=== PATIENT | male | born 1960 | race Caucasian/White ===

== ENCOUNTER 2017-12-24 08:21 | Day surgery (SDC) | payer OTHER ==
[~2017-12-24] VITALS: Ht 182.9 cm; Wt 91.3 kg
[~2017-12-24 08:21] MED LIST: ALLO100 PO; ALLO300 PO; ATEN100; HYDACE5 PO; INDO50 PO; OXYACE5T PO; RXOXYACE PO; SIMV40; ZESTRIL40 MG
== END 2017-12-24 10:30 | disposition home or self-care (01) ==
LOC: ORSCSDS 08:21
PROVIDERS: Internal Medicine Gastroenterology
PROC: 0DJ08ZZ Inspection of Upper Intestinal Tract, Via Natural or Artificial Opening Endoscopic (ICD-10-PCS; principal; 2017-12-24 09:45)
DX: Z13.810 Encounter for screening for upper gastrointestinal disorder (principal); I85.00 Esophageal varices without bleeding; K74.60 Unspecified cirrhosis of liver; I10 Essential (primary) hypertension; E66.9 Obesity, unspecified; E78.5 Hyperlipidemia, unspecified; Z79.899 Other long term (current) drug therapy
CPT/HCPCS: J2250; J7120

== ENCOUNTER 2018-04-01 06:13 | Emergency (ER) | payer OTHER ==
[~2018-04-01] VITALS: Ht 182.9 cm; Wt 93.0 kg
[~2018-04-01 06:13] MED LIST changes: -SIMV40; +SIMV40 PO; -ZESTRIL40 MG; +ZESTRIL40 MG PO
[2018-04-01 07:42] LABS: BASOPHILS ABSOLUTE AUTO 0.05 K/mm3 (0.00-0.23); BASOPHILS PERCENT AUTO 0 % (0-2); EOSINOPHILS ABSOLUTE AUTO 0.08 K/mm3 (0.00-0.68); EOSINOPHILS PERCENT AUTO 0 % (0-6); Hematocrit 29.5 % (37.0-53.0); Hemoglobin 10.6 g/dL (13.5-17.5); IMMATURE GRAN ABSOLUTE AUTO 0.14 K/mm3 (0.00-0.10); IMMATURE GRAN PERCENT AUTO 1 % (0-1); LYMPHOCYTES ABSOLUTE AUTO 1.47 K/mm3 (0.84-5.20); LYMPHOCYTES PERCENT AUTO 8 % (21-46); MONOCYTES ABSOLUTE AUTO 1.66 K/mm3 (0.16-1.47); MONOCYTES PERCENT AUTO 9 % (4-13); Mean Corpuscular HGB 34.9 pg (26.0-34.0); Mean Corpuscular HGB Conc 35.9 g/dL (31.5-36.5); Mean Corpuscular Volume 97 fL (80-100); Mean Platelet Volume 10.3 fL (9.1-12.4); NEUTROPHILS PERCENT AUTO 81 % (41-73); Platelet Count 157 K/mm3 (150-400); RDW Coefficient Variation 14.9 % (11.7-14.2); RDW Standard Deviation 52.9 fL (35.1-46.3); Red Blood Cell Count 3.04 M/mm3 (4.30-5.90)
[2018-04-01 07:54] LABS: Alanine Aminotransfer (ALT/SGP 41 U/L (12-78); Albumin, Blood 2.2 g/dL (3.4-5.0); Albumin/Globulin Ratio 0.4 (0.8-1.8); Alk Phos 143 U/L (50-136); Anion Gap 8 mmol/L (6-16); Aspartate Aminotrans (AST/SGOT 65 U/L (12-37); Bilirubin, Total 4.2 mg/dL (0.1-1.0); Blood Urea Nitrogen 19 mg/dL (8-24); CO2, Blood 22 mmol/L (21-32); Calcium, Blood 8.8 mg/dL (8.5-10.1); Chloride, Blood 100 mmol/L (98-108); Creatinine, Blood 0.86 mg/dL (0.60-1.20); Glomerular Filtration Rate >60 (60-); Glucose, Blood 128 mg/dL (70-99); Potassium, Blood 4.1 mmol/L (3.5-5.5); Sodium, Blood 130 mmol/L (136-145); Total Protein, Blood 8.2 g/dL (6.4-8.2)
[2018-04-01 08:40] LABS: CPK Creatine Kinase 35 U/L (39-308)
[2018-04-01] MEDS ORDERED: Norco 10-325 T1 EACH PO (12:56)
[2018-04-01] MEDS ORDERED: CEPH500 PO (12:56)
[2018-04-01] MEDS ORDERED: Prednisone20 MG PO (12:56)
[2018-04-01] MEDS ORDERED: Valium5 MG PO (12:56)
== END 2018-04-01 13:34 | disposition home or self-care (01) ==
LOC: ER 06:13
PROVIDERS: Emergency Medicine
DX: M48.02 Spinal stenosis, cervical region (principal); M54.12 Radiculopathy, cervical region; D72.829 Elevated white blood cell count, unspecified; R70.0 Elevated erythrocyte sedimentation rate; I10 Essential (primary) hypertension; Z79.899 Other long term (current) drug therapy
CPT/HCPCS: 36415; 71046; 72156; 80053; 81000; 82550; 85025; 85651; 96361; 96374; 96375; 99283-25; A9577; J1885; J2405; J2930; J3010; J7030

== ENCOUNTER → 2018-06-04 | Outpatient (CLI) | payer OTHER ==
[~2018-06-04] MED LIST changes: +CEPH500 PO; +Fluoxetine HCl20 M1 PO; +Norco 10-325 T1 EACH PO; +OXYC5; +Prednisone20 MG PO; +Valium5 MG PO
[2018-06-04 10:39] LABS: Body Fluid Crystals NEG (NEGATIVE)
[2018-06-04 10:40] LABS: Appearance, Synovial Fluid Bloody (Clear); Color, Synovial Fluid Red (None-P Yel)
[2018-06-04 11:08] LABS: Lymphs, Synovial Fluid 3 % (0-15); Monocytes/Macrophages, Synovia 1 % (0-65); Neutrophils, Synovial Fluid 96 % (0-24)
== END | disposition home or self-care (01) ==
LOC: LAB 09:44 → LAB SHORT 09:44
PROVIDERS: Family Medicine
DX: M25.40 Effusion, unspecified joint (principal)
CPT/HCPCS: 87070; 87075; 87077; 87186; 87205; 89051; 89060

== ENCOUNTER → 2018-08-10 | Outpatient (CLI) | payer OTHER ==
[2018-08-10 11:54] LABS: CHOL/HDL RATIO 3.2; Cholesterol 275 mg/dL (50-200); HDL Cholesterol 86 mg/dL (>39); LDL/HDL RATIO 1.9; Low Density Lipoprotein Chol 164 mg/dL (0-110); Triglycerides 127 mg/dL (30-160); Uric Acid, Blood 5.4 mg/dL (3.5-7.2); Very Low Density Lipoprot Chol 25 mg/dL (6-32)
== END | disposition home or self-care (01) ==
LOC: LAB SHORT 08:45 → LAB UCHC 08:45 → EDSTATUS 10:36
PROVIDERS: Family Medicine
DX: E78.5 Hyperlipidemia, unspecified (principal); M10.9 Gout, unspecified
CPT/HCPCS: 80061; 84550

== ENCOUNTER 2018-12-02 10:38 | Day surgery (SDC) | payer OTHER ==
[~2018-12-02] VITALS: Ht 180.3 cm; Wt 101.4 kg
[2018-12-02] MEDS ORDERED: ATOR40TA (11:31)
== END 2018-12-02 12:35 | disposition home or self-care (01) ==
LOC: ORSCSDS 10:38
PROVIDERS: Internal Medicine Gastroenterology
PROC: 06L38CZ Occlusion of Esophageal Vein with Extraluminal Device, Via Natural or Artificial Opening Endoscopic (ICD-10-PCS; principal; 2018-12-02 12:00)
DX: I85.00 Esophageal varices without bleeding (principal); K76.6 Portal hypertension; K31.89 Other diseases of stomach and duodenum; K70.30 Alcoholic cirrhosis of liver without ascites; I10 Essential (primary) hypertension; E78.5 Hyperlipidemia, unspecified; Z79.899 Other long term (current) drug therapy
CPT/HCPCS: J2250; J2704; J7120

== ENCOUNTER → 2020-03-27 | Outpatient (CLI) | payer OTHER ==
[~2020-03-27] MED LIST changes: +ATOR40TA
== END | disposition home or self-care (01) ==
LOC: LAB UCHC 14:12 → LAB SHORT 14:12
DX: L02.91 Cutaneous abscess, unspecified (principal)
CPT/HCPCS: 87070; 87075; 87077; 87147; 87186; 87205

== ENCOUNTER 2021-04-16 09:48 | Day surgery (SDC) | payer OTHER ==
[~2021-04-16] VITALS: Ht 154.9 cm; Wt 107.4 kg
[~2021-04-16 09:48] MED LIST changes: -ATOR40TA; +ATOR40TA PO; +LOSARTAN-HCTZ1 EACH PO
--- NOTE | 2021-04-16 10:38 | NUR ---
PT AMBULATES TO SDS c STEADY GAIT. REPORTS NPO INSTRUCTED. PREP RESULTS YELLOW s SEDIMENT. Lungs clear T/O to Auscultation. History, Chart, Medications and Allergies reviewed before start of procedure. Patient States Post-Procedure ride home has been arranged.
--- NOTE | 2021-04-16 11:18 | NUR ---
04/16/21 1118 Chester Casey PATIENT DETERMINED TO BE ASA APPROPRIATE FOR PROPOFOL SEDATION PRIOR TO START OF PROCEDURE BY DR. NATHAN. 3-LEAD EKG REVIEWED WITH PHYSICIAN PRIOR TO START OF PROCEDURE. Patient to ENDO 1. History, Chart, Medications and Allergies reviewed before start of procedure. MONITOR INTACT WITH CONTINUOUS PULSE OXIMETRY AND INTERMITTENT BP. O2 VIA N/C INTACT THROUGHOUT SEDATION/PROCEDURE.
--- NOTE | 2021-04-16 12:17 | NUR ---
Discharge instructions reviewed with patient. Patient verbalizes understanding. Copy given to patient to take home. VSS. NO C/O.
--- NOTE | 2021-04-16 12:30 | NUR ---
1124- TRANSFERD PATIENT TO RIDE HOME VIS W/C. PATIENT HAS RIDE ARRANGED WITH HIS MOTHER.
== END 2021-04-16 12:24 | disposition home or self-care (01) ==
LOC: ORSCMMR 09:48 → ORD 10:30 → ORSCMMR 12:24
PROVIDERS: Internal Medicine Gastroenterology
PROC: 0DBP8ZX Excision of Rectum, Via Natural or Artificial Opening Endoscopic, Diagnostic (ICD-10-PCS; principal; 2021-04-16 10:30)
PROC: 0DBM8ZX Excision of Descending Colon, Via Natural or Artificial Opening Endoscopic, Diagnostic (ICD-10-PCS; principal; 2021-04-16 10:30)
DX: R19.5 Other fecal abnormalities (principal); D12.4 Benign neoplasm of descending colon; D12.8 Benign neoplasm of rectum; I10 Essential (primary) hypertension; E78.00 Pure hypercholesterolemia, unspecified; K74.60 Unspecified cirrhosis of liver; Z79.899 Other long term (current) drug therapy
CPT/HCPCS: 88305; J2250; J2704; J7120

== ENCOUNTER 2021-10-30 15:28 | Inpatient (IN) | payer OTHER ==
[~2021-10-30] VITALS: Ht 180.3 cm; Wt 105.2 kg
[2021-10-30 15:59] LABS: BASOPHILS ABSOLUTE AUTO 0.06 K/mm3 (0.00-0.23); BASOPHILS PERCENT AUTO 0 % (0-2); EOSINOPHILS ABSOLUTE AUTO 0.03 K/mm3 (0.00-0.68); EOSINOPHILS PERCENT AUTO 0 % (0-6); Hematocrit 33.3 % (37.0-53.0); Hemoglobin 12.2 g/dL (13.5-17.5); IMMATURE GRAN ABSOLUTE AUTO 0.15 K/mm3 (0.00-0.10); IMMATURE GRAN PERCENT AUTO 1 % (0-1); LYMPHOCYTES ABSOLUTE AUTO 1.29 K/mm3 (0.84-5.20); LYMPHOCYTES PERCENT AUTO 8 % (21-46); MONOCYTES ABSOLUTE AUTO 1.53 K/mm3 (0.16-1.47); MONOCYTES PERCENT AUTO 9 % (4-13); Mean Corpuscular HGB 34.8 pg (26.0-34.0); Mean Corpuscular HGB Conc 36.6 g/dL (31.5-36.5); Mean Corpuscular Volume 95 fL (80-100); NEUTROPHILS ABSOLUTE AUTO 13.23 K/mm3 (1.96-9.15); NEUTROPHILS PERCENT AUTO 81 % (41-73); Platelet Count 107 K/mm3 (150-400); RDW Coefficient Variation 15.7 % (11.7-14.2); RDW Standard Deviation 54.9 fL (35.1-46.3); Red Blood Cell Count 3.51 M/mm3 (4.30-5.90); White Blood Cell Count 16.29 K/mm3 (4.00-11.30)
[2021-10-30 16:11] LABS: Albumin, Blood 2.4 g/dL (3.4-5.0); Albumin/Globulin Ratio 0.5 (0.8-1.8); Bilirubin, Direct 2.5 mg/dL (0.0-0.3); Bilirubin, Indirect 2.6 mg/dL (0.1-0.7); Bilirubin, Total 5.1 mg/dL (0.1-1.0); Bun/Creatinine Ratio 12.9 (12.0-20.0); Calcium, Blood 7.8 mg/dL (8.5-10.1); Creatinine, Blood 2.4 mg/dL (0.60-1.20); Globulin, Blood 5.1 g/dL (2.2-4.0); Total Protein, Blood 7.5 g/dL (6.4-8.2)
--- NOTE | 2021-10-30 21:19 | NUR ---
ADMISSION: PATIENT IS RECIEVED FROM ER VIA STRETCHER. REPORTING PAIN BILAT LEG PAIN 8/10. VSS, PATIENT IS ORIENTED TO ROOM AND CALL JENNINGS. CONCENT IS SIGNED FOR PHOTOS OF WOUND.
[2021-10-31 06:08] LABS: Hematocrit 28.6 % (37.0-53.0); Hemoglobin 10.2 g/dL (13.5-17.5); Mean Corpuscular HGB 34.1 pg (26.0-34.0); Mean Corpuscular HGB Conc 35.7 g/dL (31.5-36.5); Mean Corpuscular Volume 96 fL (80-100); Mean Platelet Volume 11.2 fL (9.1-12.4); Platelet Count 79 K/mm3 (150-400); RDW Coefficient Variation 15.9 % (11.7-14.2); Red Blood Cell Count 2.99 M/mm3 (4.30-5.90); White Blood Cell Count 12.03 K/mm3 (4.00-11.30)
--- NOTE | 2021-10-31 06:18 | NUR ---
SHIFT SUMMARY: PATIENT REPORTED PAIN IN BLE, 7-02/06. DR LOERA WAS NOTIFIED, AN ORDER FOR OXYCODONE 5MG WAS OBTAINED. PATIENT HAD GOOD EFFECT FROM MEDICATION. BP CONTINUES TO BE HYPOTENSIVE. PATIENT IS ASYMPTOMATIC. LR IS INFUSING AT 100 ML/HR. TELI SHOWS NSR, NO EVENTS. IV ABX. ADMIN. PER AUG.
[2021-10-31 06:20] LABS: Bun/Creatinine Ratio 13.1 (12.0-20.0); Creatinine, Blood 1.98 mg/dL (0.60-1.20); Potassium, Blood 3.2 mmol/L (3.5-5.5)
--- NOTE | 2021-10-31 17:35 | NUR ---
SHIFT SUMMARY PATIENT MEDICATED FOR PAIN X1. PATIENT DENIES NAUSEA AND SHORTNESS OF BREATH. PATIENT IS A SBA WITH A FWW FOR TRANSFERS. PATIENT POTASIUM WAS LOW THIS MORNING, REPLACED. PATIENT IN CONTACT ISOLATION, MAINTAINED THROUGHOUT SHIFT. PATIENT NAPPED ON AND OFF ALL SHIFT. PATIENT IS EATING AND DRINKING WELL. PATIENT IS PLEASANT AND COOPERATIVE WITH CARE.
[2021-10-31] MEDS ORDERED: Naltrexone HCl50 MG PO (18:16)
[2021-11-01 04:44] LABS: Hematocrit 30.5 % (37.0-53.0); Hemoglobin 10.8 g/dL (13.5-17.5); Mean Corpuscular HGB 34.3 pg (26.0-34.0); Mean Corpuscular HGB Conc 35.4 g/dL (31.5-36.5); Mean Corpuscular Volume 97 fL (80-100); Mean Platelet Volume 11.6 fL (9.1-12.4); Platelet Count 75 K/mm3 (150-400); RDW Coefficient Variation 16.3 % (11.7-14.2); RDW Standard Deviation 58.4 fL (35.1-46.3); Red Blood Cell Count 3.15 M/mm3 (4.30-5.90); White Blood Cell Count 7.44 K/mm3 (4.00-11.30)
[2021-11-01 05:03] LABS: Bun/Creatinine Ratio 10.8 (12.0-20.0); Calcium, Blood 7.5 mg/dL (8.5-10.1); Creatinine, Blood 2.03 mg/dL (0.60-1.20); Potassium, Blood 3.7 mmol/L (3.5-5.5)
--- NOTE | 2021-11-01 05:13 | NUR ---
SHIFT SUMMARY: NO ACUTE CHANGES THIS SHIFT. VSS, HYPOTENSIVE BUT ASYMPTOMATIC, LR INFUSING @ 150 ML/HR. PATIENT REPORTS PAIN IN BLE, OXYCODONE AND TYLENOL ARE ALTERNATED WITH GOOD EFFECT.
--- NOTE | 2021-11-01 10:07 | NUR ---
spoke with dr whitt regarding low b/p 90/52. in room with pt.
--- NOTE | 2021-11-01 12:36 | NUR ---
SPOKE WITH DR JOHNSON. DISCUSSED PLAN TO MEASURE CALFS, ATTEND TO BED/LEG MOVEMENT EXERCISES, AND STOP IV FLUIDS FOR NOW.
--- NOTE | 2021-11-01 12:38 | NUR ---
CALF MEASUREMENT- RIGHT CALF 13.25M INCHES LEFT CALF 14.25 INCHES
--- NOTE | 2021-11-01 16:53 | NUR ---
SHIFT SUMMARY- PT A&O X3. PT SLEPT THROUGH PARTIAL SHIFT. PT PLEASANT AND COMPLAINT WITH TREATMENT. PT AMBULATED TO RESTROOM TO VOID WITH RINKMAN NEEDED. PT WITH FAMILY IN ROOM PERIODICALLY THROUGHOUT SHIFT. CALL BEDFAST MOST OF SHIFT. PT WITH SIDE RAILS UP AND CALL LIGHT WITHIN REACH.
--- NOTE | 2021-11-01 17:47 | NUR ---
THIS SHELLFISH CHECKER HAS REVIEWED ALL ASSESSMENTS AND NOTES BY BABATUNDE THOMPSON AND AGREES WITH THEM.
--- NOTE | 2021-11-01 18:07 | NUR ---
PT BLISTER ON LEFT POSTERIOR CALF MEASURE 4 INCH BY 1.5 INCH @N 1800
[2021-11-02 04:35] LABS: Hematocrit 30.3 % (37.0-53.0); Hemoglobin 10.8 g/dL (13.5-17.5); Mean Corpuscular HGB 34.6 pg (26.0-34.0); Mean Corpuscular HGB Conc 35.6 g/dL (31.5-36.5); Mean Corpuscular Volume 97 fL (80-100); Mean Platelet Volume 11.2 fL (9.1-12.4); Platelet Count 67 K/mm3 (150-400); RDW Coefficient Variation 16.1 % (11.7-14.2); RDW Standard Deviation 57.6 fL (35.1-46.3); Red Blood Cell Count 3.12 M/mm3 (4.30-5.90); White Blood Cell Count 6.34 K/mm3 (4.00-11.30)
[2021-11-02 05:04] LABS: Bun/Creatinine Ratio 8.4 (12.0-20.0); Calcium, Blood 7.8 mg/dL (8.5-10.1); Creatinine, Blood 1.67 mg/dL (0.60-1.20); Potassium, Blood 3.5 mmol/L (3.5-5.5)
--- NOTE | 2021-11-02 07:10 | NUR ---
SHIFT SUMMARY: PATIENT CONTINUES TO REPORT BILAT LEG PAIN INTERMITTENTLY, OXYCODONE AND TYLENOL ARE ALTERNATED AND EFFECTIVE FOR PAIN CONTROL. A BLISTER ON THE LEFT ANTERIOR LOWER LEG HAS OPENED UP AND DRAINING SEROUS FLUID. A TELFA PAD AND KERLIX IS APPLIED. LEFT WOUND HAS LOST THE SCAB AND HAS A GRANULATED WOUND BED, DRAINING SEROSANQUINES FLUID. WOUNDS WERE WASHED AND NEW FOAM DRSG IS APPLIED. BP CONTINUES TO BE LOW, 95/58 THIS AM, PRN MIDODRINE WAS GIVEN. LOW GRADE TEMP ALSO PERSISTS. TYLENOL WAS GIVEN WITH GOOD EFFECT. PATIENT REFUSED OFFER OF SHOWER X2. BED LINENS WERE CHANGED.
--- NOTE | 2021-11-02 16:13 | NUR ---
SHIFT SUMMARY- PT RESTING/ASLEEP FOR MOST OF SHIFT. PT APPETITE WAS GOOD. PT FAMILY IN ROOM THROUGHOUT SHIFT. PT RESTING COMFORTABLY WITH SIDE RAILS UP AND CALL LIGHT IN REACH.
--- NOTE | 2021-11-02 17:13 | NUR ---
THIS TAPE CALENDER HAS REVIEWED ALL ASSESSMENTS AND NOTES BY BABATUNDE THOMPSON AND AGREES WITH THEM.
[2021-11-03 05:32] LABS: Hematocrit 30.6 % (37.0-53.0); Hemoglobin 10.8 g/dL (13.5-17.5); Mean Corpuscular HGB Conc 35.3 g/dL (31.5-36.5); Mean Corpuscular Volume 96 fL (80-100); Mean Platelet Volume 10.7 fL (9.1-12.4); Platelet Count 71 K/mm3 (150-400); RDW Coefficient Variation 15.9 % (11.7-14.2); RDW Standard Deviation 56.4 fL (35.1-46.3); Red Blood Cell Count 3.18 M/mm3 (4.30-5.90); White Blood Cell Count 4.63 K/mm3 (4.00-11.30)
[2021-11-03 05:59] LABS: Bun/Creatinine Ratio 7.4 (12.0-20.0); Calcium, Blood 8.3 mg/dL (8.5-10.1); Creatinine, Blood 1.36 mg/dL (0.60-1.20); Potassium, Blood 3.6 mmol/L (3.5-5.5)
--- NOTE | 2021-11-03 06:10 | NUR ---
SHIFT SUMMARY: SBP HAS STAYED ABOVE 100 AND NO TEMPS OBSERVED THIS SHIFT. PATIENT HAS INTERNMITTENT PAIN IN LLE, OXYCODONE WAS GIVEN X1 WITH GOOD EFFECT.
[2021-11-03] MEDS ORDERED: ACETAMINOPHEN500 M2 PO (14:10)
[2021-11-03] MEDS ORDERED: BACTRIM DS TAB1 EAC6 PO (14:12)
[2021-11-03] MEDS ORDERED: MIRT15 PO (14:13)
[2021-11-03] MEDS ORDERED: Percocet 5-3251 EACH PO (14:15)
[2021-11-03] MEDS ORDERED: MIRALAX17 G3 PO (14:16)
[2021-11-03] MEDS ORDERED: VISBIOME 112.51 EACH PO (14:18)
== END 2021-11-03 16:00 | disposition home or self-care (01) | DRG 872 ==
LOC: ER 15:28 → MEDS 19:58
PROVIDERS: Physician Assistant; Student in an Organized Health Care Education/Training Program; ADMIT Internal Medicine
PROC: HZ2ZZZZ Detoxification Services for Substance Abuse Treatment (ICD-10-PCS; principal; 2021-10-30)
PROC: 3E03329 Introduction of Other Anti-infective into Peripheral Vein, Percutaneous Approach (ICD-10-PCS; 2021-10-30)
DX: A41.9 Sepsis, unspecified organism (principal); I85.10 Secondary esophageal varices without bleeding; L03.115 Cellulitis of right lower limb; L03.116 Cellulitis of left lower limb; E87.2 Acidosis; N17.9 Acute kidney failure, unspecified; R65.20 Severe sepsis without septic shock; I95.9 Hypotension, unspecified; R63.4 Abnormal weight loss; K70.30 Alcoholic cirrhosis of liver without ascites; I10 Essential (primary) hypertension; M10.9 Gout, unspecified; F10.10 Alcohol abuse, uncomplicated; D69.59 Other secondary thrombocytopenia; E86.0 Dehydration; A46 Erysipelas; E87.6 Hypokalemia; Z68.31 Body mass index [BMI] 31.0-31.9, adult; E78.00 Pure hypercholesterolemia, unspecified; Z86.14 Personal history of Methicillin resistant Staphylococcus aureus infection; Z90.89 Acquired absence of other organs; Z79.899 Other long term (current) drug therapy
CPT/HCPCS: 36415; 76705; 80048; 80053; 80202; 82248; 83605; 85025; 85027; 86850; 86900; 86901; 87040; 87086; 93005; 93010; 96361; 96365; 96368; 99285-25; A9270; J0295; J1644; J3370; J3480; J7030; J7050; J7060; J7120

== ENCOUNTER 2021-11-09 01:59 | Day surgery (SDC) | payer OTHER ==
[~2021-11-09 01:59] MED LIST changes: +ACETAMINOPHEN500 M2 PO; +BACTRIM DS TAB1 EAC6 PO; +MIRALAX17 G3 PO; +MIRT15 PO; +Naltrexone HCl50 MG PO; +Percocet 5-3251 EACH PO; +VISBIOME 112.51 EACH PO
== END 2021-11-09 23:03 | disposition home or self-care (01) ==
LOC: WOUND 01:59
DX: S91.312D Laceration without foreign body, left foot, subsequent encounter (principal); S81.802D Unspecified open wound, left lower leg, subsequent encounter; S91.104D Unspecified open wound of right lesser toe(s) without damage to nail, subsequent encounter; W19.XXXD Unspecified fall, subsequent encounter; L03.116 Cellulitis of left lower limb; I73.9 Peripheral vascular disease, unspecified; I87.2 Venous insufficiency (chronic) (peripheral); I10 Essential (primary) hypertension; E78.5 Hyperlipidemia, unspecified
CPT/HCPCS: G0463

== ENCOUNTER 2021-11-23 05:27 | Day surgery (SDC) | payer OTHER | END 2021-11-23 23:00 | disposition home or self-care (01) | LOC: WOUND 05:27 | DX: S91.104D Unspecified open wound of right lesser toe(s) without damage to nail, subsequent encounter (principal); S91.302D Unspecified open wound, left foot, subsequent encounter; X58.XXXD Exposure to other specified factors, subsequent encounter; I73.9 Peripheral vascular disease, unspecified; I87.2 Venous insufficiency (chronic) (peripheral) | CPT/HCPCS: G0463 ==

== ENCOUNTER 2021-12-19 11:52 | Emergency (ER) | payer OTHER ==
[~2021-12-19] VITALS: Ht 180.3 cm; Wt 108.9 kg
[~2021-12-19 11:52] MED LIST changes: +LOSARTAN-HCTZ1 EAC6 PO
== END 2021-12-19 13:01 | disposition home or self-care (01) ==
LOC: ER 11:52
DX: R04.0 Epistaxis (principal); I10 Essential (primary) hypertension; E78.5 Hyperlipidemia, unspecified; M10.9 Gout, unspecified; Z79.899 Other long term (current) drug therapy
CPT/HCPCS: 99283

== ENCOUNTER 2021-12-21 08:17 | Emergency (ER) | payer OTHER ==
[~2021-12-21] VITALS: Ht 180.3 cm; Wt 108.9 kg
== END 2021-12-21 09:00 | disposition home or self-care (01) ==
LOC: ER 08:17
DX: Z46.89 Encounter for fitting and adjustment of other specified devices (principal); I10 Essential (primary) hypertension; E78.5 Hyperlipidemia, unspecified; Z79.899 Other long term (current) drug therapy
CPT/HCPCS: 99282

== ENCOUNTER → 2022-01-16 | Day surgery (SDC) | payer OTHER | LOC: WOUND 02:21 | DX: L03.116 Cellulitis of left lower limb (principal); L03.115 Cellulitis of right lower limb; I87.2 Venous insufficiency (chronic) (peripheral); I73.9 Peripheral vascular disease, unspecified | CPT/HCPCS: A9270; G0463 ==

== ENCOUNTER 2022-01-23 00:57 | Day surgery (SDC) | payer OTHER | END 2022-01-23 23:35 | disposition home or self-care (01) | LOC: WOUND 00:57 | DX: L03.116 Cellulitis of left lower limb (principal); L03.115 Cellulitis of right lower limb; I87.2 Venous insufficiency (chronic) (peripheral); I73.9 Peripheral vascular disease, unspecified | CPT/HCPCS: A9270; G0463 ==

== ENCOUNTER 2022-02-06 08:00 | Day surgery (SDC) | payer OTHER | END 2022-02-06 23:59 | disposition home or self-care (01) | LOC: WOUND 08:00 | DX: L03.116 Cellulitis of left lower limb (principal); L03.115 Cellulitis of right lower limb; I87.2 Venous insufficiency (chronic) (peripheral); I73.9 Peripheral vascular disease, unspecified | CPT/HCPCS: G0463 ==

== ENCOUNTER 2022-02-20 01:47 | Day surgery (SDC) | payer OTHER | END 2022-02-20 23:28 | disposition home or self-care (01) | LOC: WOUND 01:47 | DX: L03.116 Cellulitis of left lower limb (principal); L03.115 Cellulitis of right lower limb; I87.2 Venous insufficiency (chronic) (peripheral); I73.9 Peripheral vascular disease, unspecified | CPT/HCPCS: G0463 ==

== ENCOUNTER 2022-02-27 03:21 | Day surgery (SDC) | payer OTHER | END 2022-02-27 22:57 | disposition home or self-care (01) | LOC: WOUND 03:21 | DX: L03.116 Cellulitis of left lower limb (principal); L03.115 Cellulitis of right lower limb; I87.2 Venous insufficiency (chronic) (peripheral) | CPT/HCPCS: G0463 ==

== ENCOUNTER 2022-03-13 07:38 | Day surgery (SDC) | payer OTHER | END 2022-03-13 23:38 | disposition home or self-care (01) | LOC: WOUND 07:38 | DX: L97.822 Non-pressure chronic ulcer of other part of left lower leg with fat layer exposed (principal); L03.116 Cellulitis of left lower limb; L03.115 Cellulitis of right lower limb; I87.2 Venous insufficiency (chronic) (peripheral); I73.9 Peripheral vascular disease, unspecified | CPT/HCPCS: G0463 ==

== ENCOUNTER 2022-07-08 12:36 | Inpatient (IN) | payer OTHER ==
[~2022-07-08] VITALS: Ht 180.3 cm; Wt 110.2 kg
[2022-07-08 14:00] LABS: BASOPHILS ABSOLUTE AUTO 0.07 K/mm3 (0.00-0.23); BASOPHILS PERCENT AUTO 2 % (0-2); EOSINOPHILS ABSOLUTE AUTO 0.06 K/mm3 (0.00-0.68); EOSINOPHILS PERCENT AUTO 1 % (0-6); Hematocrit 36.1 % (37.0-53.0); Hemoglobin 12.7 g/dL (13.5-17.5); IMMATURE GRAN ABSOLUTE AUTO 0.02 K/mm3 (0.00-0.10); IMMATURE GRAN PERCENT AUTO 0 % (0-1); LYMPHOCYTES ABSOLUTE AUTO 0.82 K/mm3 (0.84-5.20); LYMPHOCYTES PERCENT AUTO 18 % (21-46); MONOCYTES PERCENT AUTO 20 % (4-13); Mean Corpuscular HGB 35.8 pg (26.0-34.0); Mean Corpuscular HGB Conc 35.2 g/dL (31.5-36.5); Mean Corpuscular Volume 102 fL (80-100); Mean Platelet Volume 10.6 fL (9.1-12.4); NEUTROPHILS ABSOLUTE AUTO 2.65 K/mm3 (1.96-9.15); NEUTROPHILS PERCENT AUTO 59 % (41-73); Platelet Count 74 K/mm3 (150-400); RDW Coefficient Variation 19.6 % (11.7-14.2); RDW Standard Deviation 73.7 fL (35.1-46.3); Red Blood Cell Count 3.55 M/mm3 (4.30-5.90); White Blood Cell Count 4.52 K/mm3 (4.00-11.30)
[2022-07-08 14:20] LABS: Albumin, Blood 2.8 g/dL (3.4-5.0); Albumin/Globulin Ratio 0.5 (0.8-1.8); Bilirubin, Total 11.5 mg/dL (0.1-1.0); Bun/Creatinine Ratio 12.1 (12.0-20.0); Calcium, Blood 9.4 mg/dL (8.5-10.1); Creatinine, Blood 2.31 mg/dL (0.60-1.20); Globulin, Blood 5.6 g/dL (2.2-4.0); Potassium, Blood 3.7 mmol/L (3.5-5.5); Total Protein, Blood 8.4 g/dL (6.4-8.2)
[2022-07-08 17:04] LABS: Source, Urine Clean Catch
[2022-07-08 17:12] LABS: Appearance, Urine Hazy (Clear); Blood, Urine 4+ (Neg); Color, Urine Amber (P-Yellow); Glucose Qualitative, Urine Neg (Neg); Ketones, Urine 1+ (Neg); Leukocyte Esterase, Urine 1+ (Neg); Nitrite, Urine Neg (Neg); Protein, Urine 3+ (Neg); Specific Gravity, Urine 1.015 (1.003-1.022); Urobilinogen, Urine 2+ (Normal)
[2022-07-08 17:47] LABS: Bilirubin, Urine 2+ (Neg)
[2022-07-08 17:50] LABS: Bacteria Mod /hpf; Mucus Light (0-Heavy); Renal Epithelial Rare /hpf (0-Rare); Squamous Epithelial Cells Few /hpf (Few)
--- NOTE | 2022-07-08 18:42 | NUR ---
ER ADMIT Patient admitted to medical floor, AOx4, preferred name is "Ulises". Patient gait is weak, staff SBA for safety. Denies pain/discomfort. Bowel tones active/audible. Lungs/Heart WNL. Patient has large black scab on left big toe, scan bleeding from scab. Took photo and placed in hard chart. IVP in right AC. Telemetery ordered, NSR. Plan is to hydrate with fluids. Will continue to monitor, give report to oncoming nurse.
[2022-07-09 05:18] LABS: BASOPHILS ABSOLUTE AUTO 0.06 K/mm3 (0.00-0.23); BASOPHILS PERCENT AUTO 2 % (0-2); EOSINOPHILS ABSOLUTE AUTO 0.07 K/mm3 (0.00-0.68); EOSINOPHILS PERCENT AUTO 2 % (0-6); Hematocrit 31.4 % (37.0-53.0); Hemoglobin 11.3 g/dL (13.5-17.5); IMMATURE GRAN ABSOLUTE AUTO 0.03 K/mm3 (0.00-0.10); IMMATURE GRAN PERCENT AUTO 1 % (0-1); LYMPHOCYTES ABSOLUTE AUTO 0.88 K/mm3 (0.84-5.20); LYMPHOCYTES PERCENT AUTO 22 % (21-46); MONOCYTES ABSOLUTE AUTO 0.88 K/mm3 (0.16-1.47); MONOCYTES PERCENT AUTO 22 % (4-13); Mean Corpuscular HGB 36.1 pg (26.0-34.0); Mean Corpuscular Volume 100 fL (80-100); NEUTROPHILS ABSOLUTE AUTO 2.08 K/mm3 (1.96-9.15); NEUTROPHILS PERCENT AUTO 52 % (41-73); Platelet Count 54 K/mm3 (150-400); RDW Coefficient Variation 19.3 % (11.7-14.2); RDW Standard Deviation 70.4 fL (35.1-46.3); Red Blood Cell Count 3.13 M/mm3 (4.30-5.90)
--- NOTE | 2022-07-09 06:14 | NUR ---
Shift Summary AOx4, pleasant and cooperative. Pt states he quit alcohol 1 week ago but he is still experiencing some symptoms, notably hand tremors and minor visual hallucinations. Pt resting comfortably t/o the night but didn't get much sleep. His R AC IV kept erroring distal occlusion, IV ended up being removed and a new IV started in his L FA. Pt rcving 1 L NS @ 75 x1 bag. SBA to BR, pt uses call light appropriatly. VSS, no acute events.
--- NOTE | 2022-07-09 06:40 | NUR ---
Shift Summary, AOx3, awakes with some confusion and impulsivity. 1 assist when up, uses urinal at the edge of the bed. Mild R sided deficits when ambulating, eyes are constricted even in the dark. Arm strength seems bilaterally equal and intact. On telemetry running AFIB around 100. Sometimes has loud, wet sounding breath sounds while asleep, declines offer to raise HoB. VSS, no acute events, pleasant and cooperative.
[2022-07-09 08:46] LABS: Albumin, Blood 2.4 g/dL (3.4-5.0); Albumin/Globulin Ratio 0.5 (0.8-1.8); Bilirubin, Total 9.9 mg/dL (0.1-1.0); Bun/Creatinine Ratio 16.9 (12.0-20.0); Calcium, Blood 9.3 mg/dL (8.5-10.1); Creatinine, Blood 2.31 mg/dL (0.60-1.20); Potassium, Blood 3.4 mmol/L (3.5-5.5); Total Protein, Blood 7.4 g/dL (6.4-8.2)
--- NOTE | 2022-07-09 17:02 | NUR ---
Patient noted to have change in condition, compared to when he was admitted yesterday evening. This morning patient appeared to have visual hallucinations, but still AOx4 and steady gait. By 12pm today patient observed to have visual/auditory hallucinations, anxiety & agitation. CIWA scored 11. Patient and his girlfriend reported patient stopped drinking 11 days ago, patient denies having any alcohol recently. notified, new orders for CIWA, alcohol withdrawal PRN meds. IV Ativan & PO Librium given, patient appeared more calm, when more family arrived patient restless, insisted on getting OOB. This evening CIWA scored at 14, more IV Ativan given. Patient unsteady on feet, RN helped patient back to bed. Patient tried using urinal and voided on the floor, patient then got OOB and was standing in urine, staff/family helped patient back to bed. He kept trying to get OOB. Patients [facility], they told RN that patient stopped drinking on Jun 30, but his "last drink" was 3 days ago. Patient was weaning his alcohol intake. They reported this year he had gone to detox centers in [place] to detox from alcohol. So patient started to fell unwell yesterday and came to ER. Patient was moved to SCU unit, so he could be monitored closer d/t high fall risk.
--- NOTE | 2022-07-09 19:11 | NUR ---
SHIFT SUMMARY PT AXO TO SELF AND DATE ONLY. TRANSFERRED FROM 358 TO 348 THIS SHIFT. PT WITHDRAWING, CIWA 14-15, MEDICATED PER EMAR. PT IN BETO WITH 4 SIDE RAILS UP FOR PATIENT SAFETY PATIENT IS CURRENTLY NOT REDIRECTABLE, NOT SAFE TO BE UP OOB, AGGITATED AND IMPULSIVE. FAMILY AWARE. REPORT GIVEN TO TOWNSHIP SUPERVISOR NURSE WHO ASSUMES CARE AT THIS TIME.
[2022-07-10 06:20] LABS: Bun/Creatinine Ratio 12.7 (12.0-20.0); Calcium, Blood 9.7 mg/dL (8.5-10.1); Creatinine, Blood 2.05 mg/dL (0.60-1.20); Potassium, Blood 4.5 mmol/L (3.5-5.5)
--- NOTE | 2022-07-10 07:13 | NUR ---
PT TRANSFERRED TO ICU FOR ETOH WITHDRAWAL AT 0500 THIS AM, ON ARRIVAL HE WAS NOTED TO BE THRASHING IN BED, PINCHED THIS RN'S FINGERS WITH ATTEMPTS TO PROVIDE CARE, PUSHED AGAINST HANDS AND BEDRAILS, PULLED AT ANY LINES/CORDS THAT FINGERS CLOSED AROUND. PT WAS NOT REDIRECTABLE, DID NOT FOLLOW COMMANDS, DID NOT OPEN EYES AND DID NOT VERBALIZE MORE THAN MUMBLING. HE WAS NOTED INCONT OF URINE ATTEMPT WAS MADE TO TURN HIM TO REMOVE EXTRA LINENS AND OBTAIN WEIGHT, ATTENDS WAS CHANGED HOWEVER PT PUSHED HARD AGAINST STAFF DURING TURNS AND THREW FEET OFF EDGE OF BED AND KICKED. CALL WAS PLACED TO DR POLLOCK AND ORDER FOR WRIST RESTRAINTS AND PRECEDEX OBTAINED. PRECEDEX WAS STARTED AT 0.4 MCG/KG/HR, INFUSED FOR 20 MINUTES AND PT WAS NOTED TO BECOME HYPOTENSIVE, PRECEDEX WAS DECREASED TO 0.2 MCG/KG/HR FOR 15 MINUTES AND PRESSURES CONTINUED TO DECLINE, PRECEDEX WAS STOPPED INFUSING AND NS 250 ML BOLUS STARTED INFUSING, DR POLLOCK CONTACTED REGARDING HYPOTENSION POTENTIAL NEED FOR ROMAZICON DISCUSSED, ORDERS OBTAINED FOR NS BOLUS OF 1000 ML. THIS WAS STARTED INFUSING AND PT'S MOST RECENT PRESSURE WAS 93/71. REPORT GIVEN TO DAY SHIFT RN.
--- NOTE | 2022-07-10 18:32 | NUR ---
END OF SHIFT SUMMARY NEURO: DOES NOT FOLLOW COMMANDS, NOT ORIENTED, MEDICATED WITH ATIVAN IV FOR CIWA 20-35, PT RESTS WELL AFTER ATIVAN. NO PRECEDEX DUE TO HYPOTENSION. BILAT SOFT WRIST RESTRAINTS IN PLACE. CARDIAC: HR 60-70'S, BP 80'S-110, MAP > 65. 1 LITER NS BOLUS GIVEN. RESP: 2L NC WHILE ASLEEP DUE TO INTERMITTENT SLEEP APNEA ASSOCIATED WITH DESATURATIONS TO THE 80'S. MAINTAINS SPO2 > 92 WITH O2. GI: NPO DUE TO SOMNOLENCE. RESISTENT TO ORAL CARE ALTHOUGH ATTEMPTED. NO REPORTED NAUSEA, NO VOMITING. : INCONTINENT. VOIDS IN BRIEF, CHANGED SEVERAL TIMES. SKIN: SCABS TO BILAT FEET PRESENT ON ADMISSION. NO CHANGES TO SKIN THIS SHIFT. IV: PIV X1, FLUSHES WELL, INFUSING NS AT 75ML/HR. FAMILY IN TO VISIT THIS AM (SON, 2 SISTERS, DAUGHTER, MOTHER, GIRLFRIEND AND GRANDDAUGHTERS). ALL PROVIDED WITH UPDATES AND ALL QUESTIONS ANSWERED. ENCOURAGED FAMILY TO NOT STIMULATE PT, THEY VERBALIZED UNDERSTANDING AND KEPT VISITS SHORT. PASSCODE CREATED BY FAMILY DUE TO CALLS FROM EX THAT IS NOT TO HAVE UPDATES/INFORMATION PER PTS STATED WISHES.
--- NOTE | 2022-07-10 20:16 | NUR ---
ASSUMED CARE OF PT AT 1900, PT HAS BEEN RESTING QUIETLY UNTIL JUST AFTER 1999 AT WHICH TIME HE BEGAN PUTTING LEGS OVER BEDRAIL AND ATTEMPTING TO SIT UP, WHEN ASKED WHAT HE WAS DOING, HE MUMBLED "I WANT A SHOWER" PT WAS EDUCATED REGARDING CURRENT LEVEL OF COORDINATION AND LIKELY INABILITY TO STAND FOR SHOWER HE IS UNABLE TO SIT WITHOUT FALLING OVER TO THE SIDE OR BACKWARD. ON EVALUATION, ATTENDS IS NOTED TO BE WET. RICHARD CARE AND ATTENDS CHANGE PROVIDED. PT DOES FOLLOW COMMANDS THROUGH ATTENDS CHANGE AND REPOSITIONING HOWEVER REQUIRES INSTRUCTIONS BE REPEATED MULTIPLE TIMES. INCREASED TREMOR IS NOTED THROUGHOUT EVALUATION AND INCREASING AGITATION. ATIVAN 4 MG IV ADMINISTERED. SEE CIWA ASSESSMENT.
--- NOTE | 2022-07-11 00:35 | NUR ---
ASSUMED CARE ASSUMED CARE AT 2300. PT IN BED, WITH EYES CLOSED. NS AT 75ML/HR. VSS. SR/SB 50-60'S. SBP 90'S. MAP GREATER THAN 65. VSS. 2L NC.
[2022-07-11 03:32] LABS: Hematocrit 31.7 % (37.0-53.0); Hemoglobin 11.3 g/dL (13.5-17.5); Mean Corpuscular HGB 36.1 pg (26.0-34.0); Mean Corpuscular HGB Conc 35.6 g/dL (31.5-36.5); Mean Corpuscular Volume 101 fL (80-100); Platelet Count 58 K/mm3 (150-400); RDW Coefficient Variation 19.3 % (11.7-14.2); RDW Standard Deviation 72.3 fL (35.1-46.3); Red Blood Cell Count 3.13 M/mm3 (4.30-5.90); White Blood Cell Count 3.62 K/mm3 (4.00-11.30)
[2022-07-11 03:48] LABS: Bun/Creatinine Ratio 12.2 (12.0-20.0); Calcium, Blood 8.6 mg/dL (8.5-10.1); Creatinine, Blood 2.13 mg/dL (0.60-1.20); Magnesium, Blood 1.7 mg/dL (1.6-2.4); Potassium, Blood 3.9 mmol/L (3.5-5.5)
--- NOTE | 2022-07-11 05:55 | NUR ---
SHIFT SUMMARY NO ACUTE EVENTS T/O NIGHT. MEDICATED W/ ATIVAN X 2. CIWA 11-12. VSS. BP SOFT AND POSITIONAL. MAP GREATER THAN 65. ON 2L NC. PT SPO2 DOWN TO 87% WHEN SLEEPING ON RA. PT INCONT. BREIF IN PLACE. NS AT 75ML/HR. WILL REPORT TO ONCOMING SHIFT.
--- NOTE | 2022-07-11 07:27 | NUR ---
ASSUMED CARE OF PT AT 0715 BEDSIDE REPORT RECEIVED FROM RN, PT HAS BEEN INTERMITTENTLY RESTLESS THROUGHOUT THE NIGHT AND IS GETTING ATIVAN IV PRN TO TREAT ELEVATED CIWA. BP'S REMAIN SOFT WHILE ASLEEP WITH SBP IN THE 80'S AT TIMES, INCREASES WHEN AWAKE. ON 2LNC AND MAINTAINS SPO2 > 92%. NPO DUE TO SOMNOLENCE, INCONTINENT, HAS BRIEF ON. SKIN UNCHANGED WITH JAUNDICE COLORING (PRESENT ON ADMISSION AND IMPROVED PER FAMILY) AND SCABBING TO BILAT FEET/TOES. PIV X 1 WITH NS INFUSING AT 75ML/HR. GIRLFRIEND TO BEDSIDE AND UPDATED ON PT CONDITION AND POC. ENCOURAGED FAMILY TO MINIMIZE STIMULATION TO PT. RN TO CONTINUE TO FOLLOW.
--- NOTE | 2022-07-11 11:26 | NUR ---
TO BEDSIDE DR. LOERA TO BEDSIDE TO ASSESS PT. DISCUSSED ABNORMAL LABS, CURRENT CONDITION AND POC. 1 LITER NS BOLUS ORDER R/T CONTINUED SOFT BP. RN TO CONTINUE TO MONITOR
--- NOTE | 2022-07-11 14:05 | NUR ---
CIWA 21-26 MEDICATED WITH 4MG ATIVAN WITH RELIEF OF SYMPOTMS NEEDED FOR CIWA > 8. PT CONTINENT AND GETS RESTLESS WHEN HE NEEDS TO URINATE. ABLE TO VOID INTO URINAL WITH ASSISTANCE. RESTING COMFORTABLY AFTER ATIVAN, STILL DISORIENTED BUT ABLE TO SPEAK IN COMPLETE SENTENCES, FOLLOWING COMMANDS MORE CONSISTENTLY. NO FAMILY AT BEDSIDE, UPDATED SON VIA PHONE THIS AM. RN TO CONTINUE TO MONITOR.
--- NOTE | 2022-07-11 19:16 | NUR ---
END OF SHIFT SUMMARY NEURO: ORIENTED TO NAME AND YEAR. STATES HE WANTS TO LEAVE. RESTLESS AND SWINGING LEGS OVER THE BED. CARDIAC: SR 60-80, SBP 80-90 PRIOR TO 1 LITER NS BOLUS, 100-115 AFTER BOLUS. RESP: 2L NC TO MAINTAIN O2 SAT > 92%. OCCASIONAL LOOSE COUGH, NON-PRODUCTIVE. GI: NPO DUE TO SOMNOLENCE AND CONFUSION. BS HYPOACTIVE, NO BM THIS SHIFT. : VOIDS USING URINAL, MARIVEL YELLOW URINE. SKIN: BUTTOCK EXCORIATED, PICTURES TAKEN. BATH GIVEN. IV: PIV X1 LEFT FOREARM. NS INFUSING AT 75ML/HR. PT CONTINUES TO BE RESTLESS AND CIWA ELEVATED DESPITE ATIVAN IV PRN. ORDER RECEIVED FOR PHENOBARBITOL IV X1 AND EVERY 15-30 MIN UNTIL SYMPTOMS RESOLVE. PT CALM AFTER LOADING DOSE.
--- NOTE | 2022-07-11 19:40 | NUR ---
ASSUMED CARE PT IS A&O TO SELF. MORE ARTICULATE THAN PREVIOUSLY PER REPORT AND ABLE TO ANSWER QUESTIONS APPROPRIATELY; DOES NOT KNOW WHERE HE IS AT. PT RESTLESS, BUT NOT PULLING AT LINES WHEN ASSUMING CARE. OCCASIONAL NON-PRODUCTIVE COUGH. BARRIER CREAM APPLIED TO GLUTEAL FOLDS. SPO2 >92% ON 2L NC; MAP >65.
--- NOTE | 2022-07-11 23:20 | NUR ---
UPDATE PT ON RA.
--- NOTE | 2022-07-12 00:13 | NUR ---
UPDATE PT BACK ON 2L NC WHILE SLEEPING.
[2022-07-12 05:07] LABS: BASOPHILS PERCENT AUTO 3 % (0-2); EOSINOPHILS ABSOLUTE AUTO 0.07 K/mm3 (0.00-0.68); EOSINOPHILS PERCENT AUTO 2 % (0-6); Hematocrit 31.8 % (37.0-53.0); Hemoglobin 11.1 g/dL (13.5-17.5); IMMATURE GRAN ABSOLUTE AUTO 0.01 K/mm3 (0.00-0.10); IMMATURE GRAN PERCENT AUTO 0 % (0-1); LYMPHOCYTES ABSOLUTE AUTO 0.81 K/mm3 (0.84-5.20); LYMPHOCYTES PERCENT AUTO 24 % (21-46); MONOCYTES ABSOLUTE AUTO 0.87 K/mm3 (0.16-1.47); MONOCYTES PERCENT AUTO 26 % (4-13); Mean Corpuscular HGB 36.2 pg (26.0-34.0); Mean Corpuscular HGB Conc 34.9 g/dL (31.5-36.5); Mean Corpuscular Volume 104 fL (80-100); Mean Platelet Volume 10.7 fL (9.1-12.4); NEUTROPHILS ABSOLUTE AUTO 1.53 K/mm3 (1.96-9.15); NEUTROPHILS PERCENT AUTO 45 % (41-73); Platelet Count 53 K/mm3 (150-400); RDW Coefficient Variation 19.2 % (11.7-14.2); RDW Standard Deviation 73.4 fL (35.1-46.3); Red Blood Cell Count 3.07 M/mm3 (4.30-5.90); White Blood Cell Count 3.39 K/mm3 (4.00-11.30)
[2022-07-12 05:32] LABS: Albumin, Blood 2.2 g/dL (3.4-5.0); Anion Gap 6 mmol/L (6-16); Blood Urea Nitrogen 25 mg/dL (8-24); Bun/Creatinine Ratio 13.2 (12.0-20.0); CO2, Blood 20 mmol/L (21-32); Calcium, Blood 8.7 mg/dL (8.5-10.1); Chloride, Blood 115 mmol/L (98-108); Creatinine, Blood 1.89 mg/dL (0.60-1.20); Glomerular Filtration Rate 40 (60-); Glucose, Blood 85 mg/dL (70-99); Phosphorus, Blood 3.4 mg/dL (2.5-4.9); Potassium, Blood 3.7 mmol/L (3.5-5.5); Sodium, Blood 141 mmol/L (136-145)
--- NOTE | 2022-07-12 06:24 | NUR ---
SHIFT SUMMARY PT IS A&O X1; DOES NOT KNOW WHERE HE IS AT WHEN ASKED T/O NIGHT. ATIVAN TO MANAGE CIWA T/O NIGHT. NO ACUTE CHANGES SINCE ASSUMED CARE NOTE.
--- NOTE | 2022-07-12 07:24 | NUR ---
Lamar of Care: Care assumed at 0700hr. Patient sleeping, easily roused to verbal stimuli. Oriented to self and year/month, confused to location. Speech mumbled, but able to express needs. Able to follow commands. Quickly falls back asleep when not stimulated by staff. Bilateral soft wrist restraints in place as he pulls at essential lines, tubes, cords when awake. Denied pain, discomfort, SOB, or dyspnea. VSS, spO2 100% on 2l/nc. Peripheral IV x1 to lt wrist patent and intact. Will continue to monitor for ETOH withdrawal and medicate as indicated.
--- NOTE | 2022-07-12 18:32 | NUR ---
Shift Summary: No significant changes throughout shift. VS remain stable, no s/s of dyspnea/SOB. Occasional moist cough (upper airway secretions). Cough effective to clear secretions. Patient sleeping throughout shift, occasionally wakes and is restless in bed. Remains oriented to self and date but confused to place and reason for admission. Answers random locations when asked "where are you right now?". Calm with staff but unable to re-direct. Continually attempts to climb out of bed and pull at lines/tubes/cords. X1 prn ativan given this shift with good effect. Incontinent of urine x3-4 this shift, denies need to void when asked. Will continue to monitor until report to NOC shift RN.
[2022-07-13 05:06] LABS: BASOPHILS ABSOLUTE AUTO 0.08 K/mm3 (0.00-0.23); BASOPHILS PERCENT AUTO 3 % (0-2); EOSINOPHILS ABSOLUTE AUTO 0.06 K/mm3 (0.00-0.68); EOSINOPHILS PERCENT AUTO 2 % (0-6); Hematocrit 32.4 % (37.0-53.0); Hemoglobin 11.2 g/dL (13.5-17.5); IMMATURE GRAN PERCENT AUTO 0 % (0-1); LYMPHOCYTES PERCENT AUTO 22 % (21-46); MONOCYTES ABSOLUTE AUTO 0.63 K/mm3 (0.16-1.47); MONOCYTES PERCENT AUTO 19 % (4-13); Mean Corpuscular HGB Conc 34.6 g/dL (31.5-36.5); Mean Corpuscular Volume 104 fL (80-100); Mean Platelet Volume 11.4 fL (9.1-12.4); NEUTROPHILS ABSOLUTE AUTO 1.78 K/mm3 (1.96-9.15); NEUTROPHILS PERCENT AUTO 55 % (41-73); Platelet Count 60 K/mm3 (150-400); RDW Coefficient Variation 18.6 % (11.7-14.2); RDW Standard Deviation 71.6 fL (35.1-46.3); Red Blood Cell Count 3.11 M/mm3 (4.30-5.90); White Blood Cell Count 3.25 K/mm3 (4.00-11.30)
--- NOTE | 2022-07-13 06:06 | NUR ---
END OF SHIFT SUMMARY LINES: LEFT FOREARM PIV AND JASIEL PG DRIPS: NS @ 75 ML/HR AND CLINIMIX @ 125 ML/HR NEURO: PT INITIALLY ORIENTED TO SELF AND PLACE AND FOLLOWING COMMANDS. AROUSABLE TO VERBAL STIMULI. THROUGHOUT SHIFT BECAME INCREASING ANXIOUS AND AGITATED WITH MULTIPLE ATTEMPTS GETTING OUT OF BED AND PULLING AT LINES/WIRES. MANAGING WITHDRAWAL WITH PRN ATIVAN AND PHENOBARBITAL. ALL FOUR EXTREMITIES ABLE TO OVERCOME RESISTANCE. TREMORS NOTED AGAINST GRAVITY. GROSS SENSATION INTACT. WITHDRAWS TO NOXIOUS STIMULI AND CAPABLE OF DETERMINING APPENDAGE STIMULATED. ICTERIC SCLERA. PUPILS 2MM AND BRISK CARDIAC: RHYTHM AT START OF SHIFT NSR WITH HR 50s-60s. SBP AVERAGING IN 140s. CAP REFILL < 3 SECONDS. NO EDEMA NOTED. PT RHYTHM CHANGE TO AFIB AT 0530. EKG TAKEN. PT REMAINED NORMOTENSIVE. RESPIRATORY: 2L NC SATTING >95%. INTERMITTENT CONGESTIVE COUGH. RHONCHI APPRECIATED IN BUL. BLL CLEAR AND DIMINISHED. GI/: ABDOMEN MODERATE DISTENTION AND FIRM. NORMOACTIVE BOWEL SOUNDS. INCONTINENT OF BOWEL AND BLADDER. CONDOM CATHETER IN PLACE. PUTTING OUT ADEQUATE AMOUNTS OF MARIVEL URINE. INTEGUMENTARY: JAUNDICED. DIAPHORETIC. SLIGHT REDNESS AND EXCORIATION TO GLUTEAL FOLDS
[2022-07-13 06:28] LABS: Albumin, Blood 2.2 g/dL (3.4-5.0); Anion Gap 6 mmol/L (6-16); Blood Urea Nitrogen 20 mg/dL (8-24); CO2, Blood 21 mmol/L (21-32); Chloride, Blood 112 mmol/L (98-108); Creatinine, Blood 1.43 mg/dL (0.60-1.20); Glomerular Filtration Rate 55 (60-); Glucose, Blood 129 mg/dL (70-99); Phosphorus, Blood 2.3 mg/dL (2.5-4.9); Potassium, Blood 3.5 mmol/L (3.5-5.5); Sodium, Blood 139 mmol/L (136-145)
--- NOTE | 2022-07-13 17:13 | NUR ---
SHIFT SUMMARY NO ACUTE CHANGES. PT REMAINS LETHARGIC AND SOMNOLENT THROUGHOUT THE SHIFT. PT REMAINS CONFUSED AND OCCASIONALLY MOANS OUT. RESTLESS AT TIMES. VITAL SIGNS STABLE. PT ON ROOM AIR. CLINIMIX INFUSING AT 125 ML/HR AND NS TKO. CONDOM CATH IN PLACE WITH DARK ORANGE URINE OUTPUT NOTED. SBW RESTRAINTS REMAIN IN PLACE. PT FAMILY UPDATED AT BEDSIDE. WILL CONTINUE TO MONITOR AND REPORT OFF TO ONCOMING RN.
[2022-07-14 04:04] LABS: BASOPHILS PERCENT AUTO 3 % (0-2); EOSINOPHILS ABSOLUTE AUTO 0.07 K/mm3 (0.00-0.68); EOSINOPHILS PERCENT AUTO 2 % (0-6); Hematocrit 35.2 % (37.0-53.0); Hemoglobin 12.4 g/dL (13.5-17.5); IMMATURE GRAN ABSOLUTE AUTO 0.01 K/mm3 (0.00-0.10); IMMATURE GRAN PERCENT AUTO 0 % (0-1); LYMPHOCYTES ABSOLUTE AUTO 0.82 K/mm3 (0.84-5.20); LYMPHOCYTES PERCENT AUTO 23 % (21-46); MONOCYTES ABSOLUTE AUTO 0.73 K/mm3 (0.16-1.47); MONOCYTES PERCENT AUTO 20 % (4-13); Mean Corpuscular HGB 35.9 pg (26.0-34.0); Mean Corpuscular HGB Conc 35.2 g/dL (31.5-36.5); Mean Corpuscular Volume 102 fL (80-100); NEUTROPHILS ABSOLUTE AUTO 1.85 K/mm3 (1.96-9.15); NEUTROPHILS PERCENT AUTO 52 % (41-73); Platelet Count 67 K/mm3 (150-400); RDW Coefficient Variation 17.7 % (11.7-14.2); RDW Standard Deviation 66.8 fL (35.1-46.3); Red Blood Cell Count 3.45 M/mm3 (4.30-5.90); White Blood Cell Count 3.58 K/mm3 (4.00-11.30)
[2022-07-14 04:32] LABS: Bun/Creatinine Ratio 14.8 (12.0-20.0); Creatinine, Blood 1.15 mg/dL (0.60-1.20); Potassium, Blood 3.6 mmol/L (3.5-5.5); Thyroid Stimulating Hormone 2.72 uIU/mL (0.360-4.800)
--- NOTE | 2022-07-14 06:24 | NUR ---
END OF SHIFT SUMMARY LINES: LEFT FOREARM PIV AND JASIEL PG DRIPS: NS @ 10 ML/HR AND CLINIMIX @ 125 ML/HR NEURO: PT INTERMITTENTLY ORIENTED TO SELF AND PLACE. ALERT TO PHYSICAL STIMULI. MANAGING WITHDRAWAL WITH PRN ATIVAN AND PHENOBARBITAL. ALL FOUR EXTREMITIES ABLE TO OVERCOME RESISTANCE. TREMORS NOTED AGAINST GRAVITY. GROSS SENSATION INTACT. WITHDRAWS TO NOXIOUS STIMULI AND INTERMITTENTLY FOLLOWS COMMANDS. ICTERIC SCLERA. PUPILS 2MM AND BRISK CARDIAC: NSR. HR 60s-70s. NORMOTENSIVE. SBP IN 110s. CAP REFILL < 3 SECONDS. NO EDEMA NOTED. RESPIRATORY: ONE INSTANCE OVERNIGHT OF SAT DROPPING INTO LOW 70s. PLACED ON 2L NC SATTING >95% WHEN SLEEPING. INTERMITTENT CONGESTIVE COUGH. CLEAR BREATH SOUNDS APPRECIATED IN BUL AND BLL. GI/: ABDOMEN MODERATE DISTENTION AND FIRM. NORMOACTIVE BOWEL SOUNDS. INCONTINENT OF BOWEL AND BLADDER. NO BOWEL MOVEMENT OVERNIGHT. CONDOM CATHETER IN PLACE. PUTTING OUT ADEQUATE AMOUNTS OF MARIVEL URINE. INTEGUMENTARY: JAUNDICED. DIAPHORETIC. SLIGHT REDNESS AND EXCORIATION TO GLUTEAL FOLDS.
--- NOTE | 2022-07-14 18:09 | NUR ---
SUMMARY PT ORIENTED TO SELF AND ABLE TO STATE YEAR THIS AFTERNOON. PT GETS RESTLESS WHILE AWAKE BUT COOPERATIVE WITH CARE THEN WILL EVENTUALLY GO BACK TO SLEEP. HOLDING SEDATION TO SEE IF PT WILL WAKE UP MORE SO HE CAN START EATING AND GETTING OOB. NO OTHER CHANGES.
--- NOTE | 2022-07-14 19:36 | NUR ---
ASSUMPTION OF CARE THIS RN ASSUMED CARE OF PATIENT AT 1930. PATIENT RESTING IN BED WITH EYES CLOSED. WILL OPEN EYES TO VERBAL STIMULI BUT QUICKLY FALLS BACK TO SLEEP. PATIENT ON 2L NC WITH O2 SAT >90%. MOIST COUGH WHILE RN IN ROOM, OTHERWISE ABLE TO CLEAR SECRETIONS ON OWN. VSS. JAUNDICED COLOR TO SKIN. CONDOM CATH IN PLACE DRAINING DARK YELLOW URINE. NO FAMILY AT BEDSIDE AT THIS TIME. CALL LIGHT IN REACH, BED IN LOW POSITION.
--- NOTE | 2022-07-15 06:35 | NUR ---
SHIFT SUMMARY PATIENT WAKES TO VERBAL STIMULI, ATTEMPTS TO OPEN EYES BUT WILL QUICKLY FALL BACK ASLEEP DURING CONVERSATION. PATIENT VERY LETHARGIC T/O NIGHT. NEGATIVE CIWAS. VSS, PATIENT ON 2L NC WITH O2 SAT >90%. Q2 TURNS DURING THE NIGHT, PATIENT STIFF AND IS UNABLE TO ASSIST STAFF WITH TURNS/REPOSITIONING. CONDOM CATH IN PLACE DRAINING DARK YELLOW URINE TO GRAVITY. PATIENT REMAINS JANDICE IN COLOR. BED IN LOW POSITION, CALL LIGHT IN REACH. NO OTHER CHANGES, WILL REPORT TO DAY SHIFT RN.
--- NOTE | 2022-07-15 08:00 | NUR ---
INITIAL ASSESSMENT PATIENT SOMNOLENT. PATIENT SLEEPING. PATIENT RESPONDS TO NOXIOUS STIMULI. PATIENT OCCASIONALLY RESPONDS TO VERBAL STIMULI; WHEN PATIENT DOES RESPOND HE MUMBLES. PATIENT CONTINUES TO KEEP EYES CLOSED. CIWA SCORE OF 6. PATIENT LAST GIVEN MEDICATION FOR ETOH WITHDRAWAL YESTERDAY AROUND 0500. SCLERA JAUNDICED. PATIENT WEAK BUT ABLE TO MOVE ALL EXTREMITIES TO NOXIOUS STIMULI. PATIENT'S BODY IS STIFF. PATIENT AFEBRILE. NO SIGNS OF PAIN OR DISCOMFORT NOTED. PATIENT DECREASED FROM 2 L NC TO RA AND REMAINS SATTING 90% AND GREATER. PATIENT IN SR, HR 60S TO 70S. SBP 1-TEENS TO 120S. PATIENT NPO FOR SOMNOLENCE. ABD MODERATELY DISTENDED, SOFT, NONTENDER, WITH NORMOACTIVE BOWEL SOUNDS NOTED. ULCER TO R SIDE OF TONGUE; GF STATES PATIENT HAS SHARP TOOTH THAT CUT IT. PLAQUE TO ROOF OF MOUTH AND TONGUE; PLAQUE REMAINS AFTER GOOD ORAL CARE. DATE OF LAST BM UNKNOWN. CONDOM CATH AND ATTENDS IN PLACE FOR INCONTINENCE. URINE ORANGE IN COLOR. BLACK SCAB TO L GREAT TOE; GF STATES THAT PATIENT DROPPED WOOD ON FOOT. SKIN JAUNDICED. GLUTEAL FOLDS REDDENED AND EXCORIATED. CLINIMIX INFUSING AT 125 MLS/ HOUR. BED LOW, CALL LIGHT IN REACH, BED ALARM ON. WILL CONTINUE TO MONITOR PATIENT FREQUENTLY THROUGHOUT SHIFT.
--- NOTE | 2022-07-15 09:30 | NUR ---
DR. POLLOCK UPDATED ON PATIENT STATUS. INFORMED THAT WA 6. INFORMED THAT PATIETN HAS REMAINED LETHARGIC. INFORMED THAT PATIENT HAS NOT RECEIVED ANY MEDICATION FOR ETOH WITHDRAWALS SINCE 0500 YESTERDAY MORNING. INFORMED THAT GIRLFRIEND CONCERNED ABOUT ULCER TO R SIDE OF TONGUE WHERE PATIENT'S "SHARP TOOTH CUT TONGUE".
--- NOTE | 2022-07-15 10:56 | NUR ---
DR. POLLOCK CALLED AND INFORMED THAT PATIENT HAS ONLY HAD 20 MLS OF URINE OUTPUT SINCE COMING ON TO SHIFT. INFORMED THAT PATIENT SOMNOLENT AND UNABLE TO DRINK FLUIDS OR TAKE PILLS. INFORMED THAT PATIENT ON CLINIMIX BUT NO OTHER MAINTENANCE FLUIDS. STATED SHE WOULD PLACE ORDER.
--- NOTE | 2022-07-15 12:15 | NUR ---
PATIENT AFEBRILE. NO SIGNS OF PAIN OR DISCOMFORT NOTED. NO CHANGES TO NEURO STATUS NOTED. CIWA SCORE OF 4. HR 60S. SBP 90S TO 1-TEENS. GOOD URINE OUTPUT AFTER IV LASIX GIVEN. URINE FOUL-SMELLING. COMPLETE BED BATH GIVEN. NO OTHER ACUTE CHANGES TO NOTE ON AT THIS TIME. WILL CONTINUE TO MONITOR.
[2022-07-15 15:39] LABS: BASOPHILS PERCENT AUTO 3 % (0-2); EOSINOPHILS ABSOLUTE AUTO 0.05 K/mm3 (0.00-0.68); EOSINOPHILS PERCENT AUTO 2 % (0-6); Hemoglobin 11.8 g/dL (13.5-17.5); IMMATURE GRAN PERCENT AUTO 0 % (0-1); LYMPHOCYTES ABSOLUTE AUTO 0.68 K/mm3 (0.84-5.20); LYMPHOCYTES PERCENT AUTO 22 % (21-46); MONOCYTES ABSOLUTE AUTO 0.72 K/mm3 (0.16-1.47); MONOCYTES PERCENT AUTO 23 % (4-13); Mean Corpuscular HGB 35.4 pg (26.0-34.0); Mean Corpuscular HGB Conc 34.7 g/dL (31.5-36.5); Mean Corpuscular Volume 102 fL (80-100); NEUTROPHILS ABSOLUTE AUTO 1.59 K/mm3 (1.96-9.15); NEUTROPHILS PERCENT AUTO 51 % (41-73); Platelet Count 65 K/mm3 (150-400); RDW Coefficient Variation 17.5 % (11.7-14.2); RDW Standard Deviation 65.5 fL (35.1-46.3); Red Blood Cell Count 3.33 M/mm3 (4.30-5.90); White Blood Cell Count 3.14 K/mm3 (4.00-11.30)
[2022-07-15 16:01] LABS: Albumin, Blood 2.1 g/dL (3.4-5.0); Albumin/Globulin Ratio 0.4 (0.8-1.8); Bilirubin, Total 10.5 mg/dL (0.1-1.0); Calcium, Blood 9.6 mg/dL (8.5-10.1); Globulin, Blood 4.9 g/dL (2.2-4.0); Potassium, Blood 3.9 mmol/L (3.5-5.5)
--- NOTE | 2022-07-15 16:30 | NUR ---
PATIENT AFEBRILE. NO SIGNS OF PAIN OR DISCOMFORT NOTED AT THIS TIME. HR IN THE 70S. SBP IN THE 120S. PATIENT NOW ABLE TO STATE NAME. CIWA SCORE OF 4. PATIENT HAS REMAINED SLEEPING. NO OTHER ACUTE CHANGES TO NOTE ON AT THIS TIME. WILL CONTINUE TO MONITOR.
--- NOTE | 2022-07-15 18:30 | NUR ---
SHIFT SUMMARY PATIENT SLEPT ALL SHIFT UNLESS STIMULATED BY NURSE. PATIENT NOW ABLE TO SAY HIS NAME. PATIENT STILL REMAINS SOMNOLENT AND MUMBLES WHEN TRYING TO ANSWER MOST QUESTIONS. CIWAS RANGED FROM 4 TO 6. PATIENT REMAINS WEAK BUT LOCALIZES ALL EXTREMITIES. PATIENT HAS REMAINED SATTING 90% AND GREATER ON RA. PATIENT HAS REMAINED IN SR, HR 60S TO 70S. SBP 80S TO 120S. PATIENT HAS REMAINED NPO FOR SOMNOLENCE. ORAL CARE CONTINUES Q4H HEAVY PLAQUE IN PATIENT MOUTH AND TONGUE. NO BM THIS SHIFT. IV LASIX GIVEN THIS AM FOR MINIMAL URINE OUTPUT. URINE OUTPUT PICKED UP AFTER LASIX. TOTAL OF 1875 MLS URINE OUT THIS SHIFT. URINE MARIVEL IN COLOR AND FOUL SMELLING. CONDOM CATH IN PLACE. NO CHANGES TO SKIN NOTED. CLINIMIX AT 125 MLS/ HOUR. COMPLETE BED BATH PERFORMED THIS SHIFT. BED LOW, CALL LIGHT IN REACH, BED ALARM ON. REPORT WILL BE GIVEN TO ASSUMING PARI MUTUEL TICKET CASHIER NURSE SHORTLY.
--- NOTE | 2022-07-15 19:35 | NUR ---
ASSESSMENT/ASSUMED CARE PT SLEEPING, AWAKENS TO TOUCH AND VOICE. NOT FOLLOWING INSTRUCTIONS. SPEECH SLURRED AND MUMBLED. LUNGS CLEAR ON ROOMAIR. RESP EVEN AND NONLABORED. HEART RATE REGULAR IN THE 60'S. BP STABLE. SKIN WARM AND JAUNDICE. BT+HYPOACTIVE. CONDOM CATH ON. LINEN CHANGED AND ATTENDS APPLIED WITH CONDOM CATH. URINE ORANGE. IV POWER GLIDE TO RIGHT UPPER ARM WITH DRSG INTACT. SITE CLEAR. CLINIMIX INFUSING AT 125 ML/HR. IV 20G TO LEFT FOREARM WITH LIPID AT 25 ML/HR. SITE CLEAR. BED ALARM ON. ORAL CARE DONE. ORAL DRY WITH THICK BROWN CASTS. REMOVED SOME CASTS. WILL REPEAT ORAL CARE Q2HRS.
--- NOTE | 2022-07-15 20:50 | NUR ---
O2 SOP2 DOWN INTO 80'S ON ROOMAIR WHILE SLEEPING. PLACED PT ON 2 LITER O2 VIA NC. SPO2 UP TO 98%.
[2022-07-16 04:02] LABS: BASOPHILS ABSOLUTE AUTO 0.09 K/mm3 (0.00-0.23); BASOPHILS PERCENT AUTO 3 % (0-2); EOSINOPHILS ABSOLUTE AUTO 0.06 K/mm3 (0.00-0.68); EOSINOPHILS PERCENT AUTO 2 % (0-6); Hematocrit 31.3 % (37.0-53.0); Hemoglobin 11.1 g/dL (13.5-17.5); IMMATURE GRAN PERCENT AUTO 0 % (0-1); LYMPHOCYTES ABSOLUTE AUTO 0.77 K/mm3 (0.84-5.20); LYMPHOCYTES PERCENT AUTO 23 % (21-46); MONOCYTES ABSOLUTE AUTO 0.69 K/mm3 (0.16-1.47); MONOCYTES PERCENT AUTO 21 % (4-13); Mean Corpuscular HGB 35.5 pg (26.0-34.0); Mean Corpuscular HGB Conc 35.5 g/dL (31.5-36.5); Mean Corpuscular Volume 100 fL (80-100); Mean Platelet Volume 12.4 fL (9.1-12.4); NEUTROPHILS ABSOLUTE AUTO 1.75 K/mm3 (1.96-9.15); NEUTROPHILS PERCENT AUTO 52 % (41-73); RDW Coefficient Variation 17.4 % (11.7-14.2); RDW Standard Deviation 64.3 fL (35.1-46.3); Red Blood Cell Count 3.13 M/mm3 (4.30-5.90); White Blood Cell Count 3.36 K/mm3 (4.00-11.30)
[2022-07-16 04:21] LABS: Anion Gap 6 mmol/L (6-16); Blood Urea Nitrogen 24 mg/dL (8-24); Bun/Creatinine Ratio 23.8 (12.0-20.0); CO2, Blood 25 mmol/L (21-32); Chloride, Blood 102 mmol/L (98-108); Creatinine, Blood 1.01 mg/dL (0.60-1.20); Glomerular Filtration Rate 84 (60-); Glucose, Blood 115 mg/dL (70-99); Phosphorus, Blood 3.8 mg/dL (2.5-4.9); Potassium, Blood 4.2 mmol/L (3.5-5.5); Sodium, Blood 133 mmol/L (136-145)
--- NOTE | 2022-07-16 05:51 | NUR ---
SHIFT SUMMARY PT AWAKE, UP TO CHAIR WITH LIFT AFTER ATTENDS CHANGED. TAB ALARM ON. CALL LIGHT WITHIN REACH. ORAL CARE DONE Q2HRS. TURNED Q2HRS. REORIENT WITH EACH TURN AND CARE GIVEN. PT PLACED ON 2 LITERS O2 DURING THE NIGHT FOR SPO2 DOWN INTO THE 80'S WHILE SLEEPING. VSS. UNABLE TO KEEP CONDOM CATH ON. ATTENDS INPLACE. REPORT TO ON COMING NURSE
[2022-07-16 06:53] LABS: Mean Platelet Volume 11.2 fL (9.1-12.4); Platelet Count 66 K/mm3 (150-400)
--- NOTE | 2022-07-16 08:30 | NUR ---
INITIAL ASSESSMENT PATIENT SOMNOLENT AND REMAINS SLEEPING MOST OF ASSESSMENT. PATIENT ANSWERS SOME QUESTIONS AND WHEN HE DOES IT IS MUMBLED SOUNDS. PATIENT IS ABLE TO SAY NAME. EYES REMAIN CLOSED. PATIENT IS ABLE TO OPEN MOUTH AND MOVE EXTREMITIES AFTER ASKED A COUPLE OF TIMES. SCLERA JAUNDICED. CIWA SCORE OF FOR CONFUSION ONLY. PATIENT STIFF AND WEAK BUT ABLE TO MOVE ALL EXTREMITIES. PATIENT AFEBRILE. NO SIGNS OF PAIN OR DISCOMFORT NOTED. PATIENT DECREASED FROM 2 L NC TO RA AND REMAINS SATTING 90% AND GREATER. PATIENT IN SR, HR IN THE 80S. SBP 1-TEENS TO 120S. PATIENT NPO FOR SOMNOLENCE. PLAQUE IN MOUTH IMPROVED. WHITE NOTED TO TONGUE AND BACK OF THROAT. DATE OF LAST BM UNKNOWN. ATTENDS IN PLACE FOR INCONTINENCE. URINE ORANGE IN COLOR AND STRONG SMELLING. SKIN JAUNDICED. REDDENED GLUTEAL FOLDS NOTED. SCABS TO TOES. ULCER TO R SIDE OF TONGUE. CLINIMIX INFUSING AT 125 MLS/ HOUR. CALL LIGHT IN REACH. WILL CONTINUE TO MONITOR PATIENT FREQUENTLY THROUGHOUT SHIFT.
--- NOTE | 2022-07-16 12:45 | NUR ---
PATIENT AFEBRILE. NO SIGNS OF PAIN NOTED. HR IN THE 70S. SBP IN THE LOW 100S. CIWA SCORE REMAINS 4 FOR CONFUSION. NO OTHER ACUTE CHANGES TO NOTE ON AT THIS TIME. WILL CONTINUE TO MONITOR.
--- NOTE | 2022-07-16 14:30 | NUR ---
SHIFT SUMMARY PATIENT A AND O TO SELF AND TO FOLLOWING A COUPLE SIMPLE COMMANDS. PATIENT REMAINS LETHARGIC AND SLEEPING IF NOT BEING BOTHERED. PATIENT MOSTLY MUMBLES WHEN ASKED QUESTIONS OR WHEN TURNS/ CHANGES PERFORMED. CIWA SCORE HAS REMAINED 4 FOR CONFUSION ONLY. PATIENT HAS REMAINED AFEBRILE. NO COMPLAINTS OR SIGNS OF PAIN THIS SHIFT. PATIENT HAS REMAINED SATTING 90% AND GREATER ON RA. PATIENT HAS REMAINED IN SR, HR 60S TO 80S. SBP LOW 100S TO 120S. PATIENT HAS REMAINED NPO FOR SOMNOLENCE. PLAQUE IN MOUTH IMPROVED. SCHEDULED NYSTATIN STARTED THIS SHIFT FOR WHITE TONGUE AND BACK OF THROAT. NO BM THIS SHIFT. SPEECH THERAPY ORDERED TO SEE PATIENT AND PERFORM SWALLOW EVAL. PATIENT REMAINS INCONTINENT AND VOIDS LARGE AMOUNTS OF ORANGE, STRONG SMELLING URINE. PATIENT NOW RECEIVING SCHEDULED DAILY LASIX. NO CHANGES TO SKIN NOTED. PATIENT HAD COMPLETE BED BATH THIS SHIFT. CLINIMIX REMAINS AT 125 MLS/ HOUR. PT/OT ALSO ORDERED THIS SHIFT. PATIENT WILL BE TRANSFERRING TO PCU, ROOM 09 SHORTLY.
--- NOTE | 2022-07-16 15:42 | NUR ---
PATIENT TRANSFERRED TO PCU, ROOM 09. ALL BELONGINGS SENT WITH PATIENT. FAMILY INFORMED OF TRANSFER.
--- NOTE | 2022-07-16 15:50 | NUR ---
TRANSFER ASSESSMENT: Pt arrived from ICU to PCU9. Pt very lethargic. LS diminshed. HR reg. BT positive. Pt has jaundiced appearance. Pt attempts to follow directions, but falls back to sleep in the process. Pt repositioned to L side. Bed alarm on. Will monitor.
--- NOTE | 2022-07-16 17:27 | NUR ---
Shift summary: Pt has remained very lethargic since arrival to PCU 9. VSS. IVF running per orders. Pt does attempt to follow directions but falls back to sleep. Pt repositioned q2. Oral care q4. Will continue to mnoitor and report to night RN.
--- NOTE | 2022-07-17 05:16 | NUR ---
SHIFT SUMMARY PT VERY LETHARGIC, SLOWLY OPENS EYES HALF WAY TO VERBAL STIMULI. IS VERY SLOW TO RESPOND AND HAS MUMBLED SPEECH. VSS, BP STABLE, SINUS 70's, SpO2> 92% 2L VIA NC. CIWA RANGED FROM 4-10 THIS SHIFT, MANAGED PER EMAR. CLINIMIX gtt @ 125. PT INCONTIENT OF URINE, ATTENDS IN PLACE. NO BM THIS SHIFT. ORAL CARE WITH SUCTION PROVIDED THROUGHOUT SHIFT. PT PUT LEGS OVER SIDE OF BED/RAIL MULTIPLE TIMES, THOUGH NEVER GOT OUT OF BED. NO OTHER EVENTS, WILL REPORT TO ONCOMING RN.
--- NOTE | 2022-07-17 09:42 | NUR ---
AM NOTE: PATIENT ALERT TO SELF. VERY DROWSY AND LETHARGIC THIS AM UPON SHIFT START. STARTING TO WAKE UP MORE CALLING OUT FOR DOG "ROUGE". AT TIMES TRYING TO GET OUT OF BED BY SWINGING LEGS OVER SIDE. PERRLA. NOT ANSWERING QUESTIONS. FOLLOWING SIMPLE COMMANDS. THIS RN REMAINS CLOSE TO BEDSIDE WITH BED ALARM IN PLACE. ON RA-2L DEPENDING ON IF PATIENT IS SLEEPING. NEEDING MORE O2 WHEN ASLEEP. SNORING AND MOUTH BREATHING. LUNGS SOUNDING CLEAR AND DIM IN BASES. OCCASIONAL COARSE SOUNDING COUGH. Q4 ORAL CARE AND NEEDED. SUCTION AT BEDSIDE. TELE SHOWING SINUS RHYTHM WITH HR 70'S. BP STABLE. DOES NOT APPEAR IN ANY CARDIAC DISTRESS. BILATERAL TRACE EDEMA. PPP. BOWEL TONES PRESENT. NPO AT THIS TIME, NOT SAFE TO SWALLOW. SPEECH THERAPY CONSULT IN PLACE. CLINIMX INFUSING. GAG REFLEX PRESENT. SORE NOTED ON LEFT ANTERIOR TONGUE. ATTENDS IN PLACE. URINE ORANGE IN COLOR. SKIN JAUNDICED WELL SCLERA. SCATTERED BRUISING AND SCAB TO LEFT BIG TOE. BED ALARM IN PLACE. WILL CONTINUE TO MONITOR. GIRLFRIENJacky MILLIE BY THIS AM.
--- NOTE | 2022-07-17 10:54 | NUR ---
DR. POLLOCK BY TO SEE PATIENT. PLAN FOR SPEECH THERAPY TO COME AND ASSESS AROUND 1330. WILL UPDATE DR. POLLOCK POST SPEECH THERAPY. DAUGHTER RADHA AT BEDSIDE AND UPDATE PROVIDED. PATIENT SLEEPING AT THIS TIME.
--- NOTE | 2022-07-17 12:14 | NUR ---
BED BATH GIVEN, 1200 VITALS STABLE. Q2 TURNING. GIRLFRIEND AND SISTER AT BEDSIDE, UPDATE PROVIDED.
--- NOTE | 2022-07-17 15:04 | NUR ---
PATIENT FAILED SPEECH EVAL, NOT ABLE TO STAY ALERT AND AWAKE ENOUGH TO SAFELY SWALLOW. CALL PLACED TO DR. POLLOCK TO UPDATE. ORDERS FOR DOBHOFF WITH XRAY PLACEMENT CONFIRMATION. BE PLACED WITH CHAY CLNIICAL COORDINATOR ASSISTANCE. XRAY CONFIRMATION ORDERS IN PLACE WELL. GIOVANNA FROM NUTRITION CALLED, PLAN FOR GIOVANNA TO PLACE TF ORDERS. CLINIMIX DISCONTINUED. SON CAYETANO AND DAUGHTER RADHA AT BEDSIDE AND UPDATED. DURING SPEECH EVAL PATIENT ALERT ENOUGH TO ANSWER A FEW QUESTIONS. OPENING EYES SLIGHTLY. RIGHT EYELID DROOPING MORE THAN LEFT. PUPILS REMAIN EQUAL AND REACTIVE.
--- NOTE | 2022-07-17 15:51 | NUR ---
DOBHOFF PLACEMENT CONFIREMED VIA XRAY. LUCIO LR SECURED AND MEASURING 55CM AT NARE. WAITING FOR TF ORDERS.
--- NOTE | 2022-07-17 18:19 | NUR ---
SHIFT SUMMARY: SEE PREVIOUS NOTES FOR UPDATES. TF STARTED AT INITIAL RATE OF 25ML/HR. TOLERATING OKAY AT THIS TIME. Q2 TURNING, Q4 ORAL CARE. VERY HEAVY WETTING WITH EACH TURN. INCONTINENT CLEAN ATTENDS IN PLACE. REMAINS ON RA-2L DEPENDING ON IF PATIENT IS SLEEPING OR AWAKE. TELE CONTINUES TO SHOW SR. VITAL SIGNS STABLE. CALL LIGHT IN REACH, SLEEPING AT THIS TIME. WILL CONTINUE TO MONTIOR.
[2022-07-18 03:40] LABS: BASOPHILS ABSOLUTE AUTO 0.11 K/mm3 (0.00-0.23); BASOPHILS PERCENT AUTO 2 % (0-2); EOSINOPHILS ABSOLUTE AUTO 0.04 K/mm3 (0.00-0.68); EOSINOPHILS PERCENT AUTO 1 % (0-6); Hematocrit 30.8 % (37.0-53.0); Hemoglobin 10.9 g/dL (13.5-17.5); IMMATURE GRAN ABSOLUTE AUTO 0.03 K/mm3 (0.00-0.10); IMMATURE GRAN PERCENT AUTO 1 % (0-1); LYMPHOCYTES ABSOLUTE AUTO 0.82 K/mm3 (0.84-5.20); LYMPHOCYTES PERCENT AUTO 18 % (21-46); MONOCYTES ABSOLUTE AUTO 0.99 K/mm3 (0.16-1.47); MONOCYTES PERCENT AUTO 22 % (4-13); Mean Corpuscular HGB 36.1 pg (26.0-34.0); Mean Corpuscular HGB Conc 35.4 g/dL (31.5-36.5); Mean Corpuscular Volume 102 fL (80-100); Mean Platelet Volume 12.3 fL (9.1-12.4); NEUTROPHILS PERCENT AUTO 57 % (41-73); Platelet Count 64 K/mm3 (150-400); RDW Coefficient Variation 17.2 % (11.7-14.2); RDW Standard Deviation 64.4 fL (35.1-46.3); Red Blood Cell Count 3.02 M/mm3 (4.30-5.90); White Blood Cell Count 4.59 K/mm3 (4.00-11.30)
[2022-07-18 04:00] LABS: Albumin, Blood 2.1 g/dL (3.4-5.0); Anion Gap 6 mmol/L (6-16); Blood Urea Nitrogen 29 mg/dL (8-24); Bun/Creatinine Ratio 29.3 (12.0-20.0); CO2, Blood 26 mmol/L (21-32); Calcium, Blood 8.8 mg/dL (8.5-10.1); Chloride, Blood 101 mmol/L (98-108); Creatinine, Blood 0.99 mg/dL (0.60-1.20); Glomerular Filtration Rate 86 (60-); Glucose, Blood 115 mg/dL (70-99); Phosphorus, Blood 3.1 mg/dL (2.5-4.9); Potassium, Blood 4.4 mmol/L (3.5-5.5); Sodium, Blood 133 mmol/L (136-145)
--- NOTE | 2022-07-18 06:01 | NUR ---
SHIFT SUMMARY PT VERY LETHARGIC, SLOWLY OPENS EYES HALF WAY TO VERBAL STIMULI. IS VERY SLOW TO RESPOND AND HAS MUMBLED SPEECH. VSS, BP STABLE, SINUS 70's, SpO2> 92% RA. PT PULLED DOBHOFF AT APROXIMATELY 2000, NEW DOBHOFF PLACED, WNL AND PLACEMENT CONFIRMED BY X-RAY READ BY DR. GALLAGHER. PT PLACED IN BILAT SWR TO PREVENT THEM FROM PULLING DOBHOFF AGAIN. PT PLACED IN BETO VEST TO PREVENT PT FROM SCOOTING DOWN RESULTING IN HEAD BEING LOWER THAN 45 DEGREES WHILE TF IS RUNNING. FAMILY NOTIFIED OF PT BEING PUT IN RESTRAINTS AND THIS RN RESQUESTED THAT FAMILY MEMBER SIT AT BEDSIDE TO HELP KEEP PT IN BED AND RELAXED. FAMILY AT BEDSIDE WAS VERY HELPFUL. PT INCONTIENT OF URINE, ATTENDS IN PLACE. NO BM THIS SHIFT. ORAL CARE WITH SUCTION PROVIDED THROUGHOUT SHIFT. NO OTHER EVENTS, WILL REPORT TO ONCOMING RN.
--- NOTE | 2022-07-18 10:33 | NUR ---
AM NOTE: PATIENT MORE ALERT THIS AM. OPENING EYES, VERY DROOPY EYELIDS. ABLE TO TELL ME HIS NAME AND BIRTHDAY. SPEECH MUMBLED. PUPILS EQUAL AND REACTIVE. TRYING TO GET OUT OF BED, BILATERAL WRIST RESTRAINTS AND SIDE RAILS UP. BED ALARM IN PLACE. ON ROOM AIR SATING ABOVE 92%. LUNGS SOUNDING CLEAR AND DIM IN BASES. OCCASIONAL COUGHS WITH SOME SPUTUM. SUCTION AT BEDSIDE. Q4 ORAL CARE. TELE SHOWING SINUS RHYTHM WITH HR 70-80'S. DENIES CHEST PAIN/PRESSURE. BP STABLE. TRACE EDEMA TO BLE. ATTENDS IN PLACE. SPEECH IN TO SEE PATIENT THIS AM. FAILED SWALLOW. TF CONTINUES AT 35 ML/HR. DOBHOFF IN PLACE, MARKED AT 55CM. FLUSHING WITH AM MEDS. ATTENDS IN PLACE. INCONT OR URINE. URINE COLORING ORANGE. SKIN JAUNDICED WELL SCLERA. RIGHT UPPER ARM PG SALINE LOCKED. CIW SCORE 3 THIS AM. DAUGHTER IN AND UPDATED ON CARE AND PLAN FOR TODAY. WORKING WITH PT/OT THIS AFTERNOON. UP TO EDGE OF BED. CALL LIGHT IN REACH. WILL CONTINUE TO MONITOR.
--- NOTE | 2022-07-18 18:25 | NUR ---
SHIFT SUMMARY: NO ACUTE CHANGES. PATIENT SLEPT MOST OF SHIFT. REMAINS IN BILATERAL WRIST RESTRAINTS DUE TO TRYING TO PULL ON DOBHOFF AND GET OUT OF BED. WAKES TO VOICE, REMAINS DROWSY WHEN AWAKE. FAMILY IN TO VISIT AND UPDATED. TUBE FEED AT GOAL RATE 45 ML/HR. INCONTINENT EPISODES OF URINE THROUGHOUT DAY. VITAL SIGNS REMAINS STABLE. TELE CONTINUES TO SHOW SR 70-80'S. Q4 ORAL CARE, Q2 TURNS, BED ALARM IN PLACE. WILL REPORT OFF TO ONCOMING RN.
[2022-07-19 03:56] LABS: BASOPHILS ABSOLUTE AUTO 0.12 K/mm3 (0.00-0.23); BASOPHILS PERCENT AUTO 2 % (0-2); EOSINOPHILS ABSOLUTE AUTO 0.08 K/mm3 (0.00-0.68); EOSINOPHILS PERCENT AUTO 2 % (0-6); Hematocrit 30.8 % (37.0-53.0); Hemoglobin 10.9 g/dL (13.5-17.5); IMMATURE GRAN ABSOLUTE AUTO 0.05 K/mm3 (0.00-0.10); IMMATURE GRAN PERCENT AUTO 1 % (0-1); LYMPHOCYTES ABSOLUTE AUTO 0.84 K/mm3 (0.84-5.20); LYMPHOCYTES PERCENT AUTO 17 % (21-46); MONOCYTES ABSOLUTE AUTO 1.09 K/mm3 (0.16-1.47); MONOCYTES PERCENT AUTO 22 % (4-13); Mean Corpuscular HGB 35.9 pg (26.0-34.0); Mean Corpuscular HGB Conc 35.4 g/dL (31.5-36.5); Mean Corpuscular Volume 101 fL (80-100); NEUTROPHILS ABSOLUTE AUTO 2.76 K/mm3 (1.96-9.15); NEUTROPHILS PERCENT AUTO 56 % (41-73); RDW Standard Deviation 63.8 fL (35.1-46.3); Red Blood Cell Count 3.04 M/mm3 (4.30-5.90); White Blood Cell Count 4.94 K/mm3 (4.00-11.30)
[2022-07-19 04:16] LABS: Albumin, Blood 2.2 g/dL (3.4-5.0); Albumin/Globulin Ratio 0.4 (0.8-1.8); Bilirubin, Direct 4.3 mg/dL (0.0-0.3); Bilirubin, Indirect 5.6 mg/dL (0.1-0.7); Bilirubin, Total 9.9 mg/dL (0.1-1.0); Bun/Creatinine Ratio 28.2 (12.0-20.0); Calcium, Blood 9.1 mg/dL (8.5-10.1); Creatinine, Blood 0.92 mg/dL (0.60-1.20); Globulin, Blood 5.3 g/dL (2.2-4.0); Phosphorus, Blood 2.5 mg/dL (2.5-4.9); Potassium, Blood 3.9 mmol/L (3.5-5.5); Total Protein, Blood 7.5 g/dL (6.4-8.2)
[2022-07-19 04:24] LABS: Mean Platelet Volume 11.6 fL (9.1-12.4)
--- NOTE | 2022-07-19 04:35 | NUR ---
SHIFT SUMMARY PT VERY LETHARGIC, THOUGH MENTATION IS IMPROVING. SLOWLY OPENS EYES HALF WAY TO VERBAL STIMULI. IS VERY SLOW TO RESPOND AND HAS MUMBLED SPEECH. VSS, BP STABLE, SINUS 70's, SpO2> 92% RA. PT REMAINED IN BUE SWR TO PREVENT PULLING AT LINES. DOBHOFF REMAINED IN PLACE, TUBE FEEDING AT 45mls/hr WITH 60ml WATER FLUSH EVERY HOUR. PT INCONTIENT OF URINE, ATTENDS IN PLACE. NO BM THIS SHIFT. ORAL CARE WITH SUCTION PROVIDED THROUGHOUT SHIFT. NO OTHER EVENTS, WILL REPORT TO ONCOMING RN.
[2022-07-19 05:44] LABS: Platelet Count 68 K/mm3 (150-400)
--- NOTE | 2022-07-19 15:56 | NUR ---
Brief supportive visit with Pt this afternoon. Pt is pleasantly confused A&OX1. ST Katie in to evaluate Pt. Spoke with Katie after her evaluation with Pt being recommended for puree diet and thin liquids by spoon when appropriately awake. Called and left message for Pt's son Mark with request for a return phone call. Called and spoke with Pt's sister Debbie. Provided update and reviewed plan of care. Gentle education on advanced care planning. Discussed the importance of planning for the future and routine conversations with PCP and specialists. Offered therapeutic listening and answered questions. Palliative Care will remain available
--- NOTE | 2022-07-19 17:38 | NUR ---
SUMMARY Neuro/Psych: A&O x 1. Follows commands. Forgetful. Educated not to pull dobhoff but patient reaches for it when he is not restrainted. Otherwise pt has been pleasant and cooperative with care. Many visitors, all provided passcode "Royce", in to see patient today. Musc/ADLS: Continuously reaching towards dobhoff or trying to get out of bed while awake. Worked with physical therapy and occupational therapy today. Pt extremely lethargic afterwards, slept for 4 hours. Pt received bedbath today. Resp: WNL Cardiac: SR per monitor. BP stable. GI: TF and flush per orders. Pt tolerating well. No BM this shift. Skin: Unchanged from initial assessment.
--- NOTE | 2022-07-20 06:05 | NUR ---
SHIFT SUMMARY ASSUMED CARE OF PT AT 0100. PT WAS TALKING TO SELF AND PULLING ON RESTRAINTS. PT WILL CALL OUT OCCASIONALLY. PT FINALLY WENT TO BED AROUND 0300 THIS AM. PT REMAINED ON RA. PT WAS INCONTIENT OF URINE. TURNED Q2. NO ACOUTE EVENTS.
--- NOTE | 2022-07-20 08:41 | NUR ---
ASSUMED CARE PT. AWAKENS TO VERBAL STIMULI THIS AM. PT. VERY DROWSY, WINDOWS OPENED AND PT BOOSTED AND SAT UP IN BED. PT. OCCASIONALLY RESPONDS VERBALLY ORIENTED ONLY TO HIMSELF. WHEN AWAKE REACHING FOR DOBHOFF. PT REMAINS IN BILAT WRIST RESTRAINTS AND SIDE RAILS X4 TO PROTECT TUBES AND LINES AND SAFETY. PT SCOOTS SELF DOWN TO THE END OF THE BED AND REACHES TOWARD NG TUBE. PT. APPEARS JAUDINCED IN COLOR. PT. DENIES PAIN AT THIS TIME. ORAL CARE COMPLETED. CURRENTLY ON RA. PT. ATTENDS IN PLACE, WITH WRAP. WRAP CHANGED THIS AM, AND PT ABLE TO VOICE NEEDING TO VOID AND WAS ABLE TO VOID IN URINAL WITH ASSISTANCE. PT. TO BEDSIDE TODAY. ATTEMPTED TO ASSIST PT WITH PO INTAKE FOR BREAKFAST. PT VERY DROWSY AT THIS TIME NEEDING FREQUENTLY REMINDER TO OPEN EYES AND PARTICIPATE. VSS AT THIS TIME.
--- NOTE | 2022-07-20 11:30 | NUR ---
DOBHOFF REMOVED AT THIS TIME, PER ORDER. RESTRAINTS DCD AT THIS TIME WELL. BED ALARM REMAINS ON AND PT NEEDING FREQUENT REIORIENTATION. BED IN LOW POSITION.
--- NOTE | 2022-07-20 12:00 | NUR ---
PT RESTLESS IN BED, CONTINUALLY SCOOTING TOWARD BASE OF THE BED AND PUTTING LEGS OVER THE EDGE. PT. KEEPS STATING "IM GOING TO GET MY TRUCK". NEEDING FREQUENT REORIENTATION. SPEECH DIFFICULT TO UNDERSTAND. FREQUENT ORAL CARE COMPLETED. BED IN LOW POSITION AND BED ALARM ON.
--- NOTE | 2022-07-20 13:40 | NUR ---
PT TO CT SCAN AT THIS TIME.
--- NOTE | 2022-07-20 17:40 | NUR ---
SHIFT SUMMARY PT. DROWSY AT THIS TIME, AWAKE FOR MOST OF THE MORNING HOWEVER AFTER PHYSICAL THERAPY THIS PM PT. SLEEEPING DESPITE ATTEMPTS TO KEEP PT AWAKE. WHEN AWAKE PT ABLE TO ANSWER SOME QUESTIONS, AND DID EAT LUNCH TODAY WITH ASSISTANCE. PT. VSS T/O SHIFT. WAS ABLE TO DANGLE WITH ASSIST TODAY HOWEVER REMAINS VERY WEAK. RESTRAINTS DCD TODAY AFTER DOBHOFF REMOVAL. PT. FAMILY IN TO VISIT AND UPDATED ON PT CONDITION. CALL LIGHT IN REACH. ALL NEEDS MET AT THIS TIME. REPORT TO ONCOMING RN.
--- NOTE | 2022-07-20 21:34 | NUR ---
REPORT GIVEN TO OMAR FRANCE, MEDICAL FLOOR RN. PT TRANSPORTED TO ROOM 342 BY TWO RNS. PT SLID TRANSFERRED TO MEDICAL BED.
--- NOTE | 2022-07-20 21:36 | NUR ---
PATIENT ARRIVED FROM PCU AT 21:20. ALERT TO SELF AND PLACE. ROOM AIR, NO TELE, INCONTINENT WITH BRIEF, BEDREST, MAX ASSIST, RUE POWERGLIDE, SKIN CLEAR. ALL BELONGINGS CAME WITH PATIENT.
--- NOTE | 2022-07-21 05:29 | NUR ---
SHIFT SUMMARY PLEASANTLY CONFUSED, ORIENTED TO PERSON AND PLACE, SLOW RESPONSES. INCONT OF BLADDER, NO BM. TURNS SELF IN BED, DID NOT ATTEMPT AMBULATION, ATTEMPTED TO GET OUT OF BED X1 BUT REDIRECTABLE. BED ALARM IN PLACE TOLERATING THIN LIQUIDS IN SPOONFULS, ENCOURAGE PO FLUIDS. POWERGLIDE FLUSHES.
--- NOTE | 2022-07-21 15:34 | NUR ---
SHIFT SUMMARY PATIENT IS ALERT BUT NOT ORIENTED. PATIENT HAS HAD NO ACUTE EVENTS THIS SHIFT. VITAL SIGNS REVIEWED. PATIENT HAS BEEN AWAKE OFF AND ON. PATIENT HAS BEEN UP FOR MEALS AND IS STILL A FEEDER BUT APPETITE IS IMPROVED. FAMILY VISITED THIS SHIFT AND WAS UPDATED ON PATIENTS CONDITION AND IMPROVEMENT. PATIENT HAS NOT COMPLAINED OF PAIN, NAUSEA, SOB OR VOMITTING THIS SHIFT. BED IN LOCKED AND LOWEST POSITION. CALL LIGHT IN PLACE. WILL MONITOR UNTIL SHIFT CHANGE.
--- NOTE | 2022-07-22 04:06 | NUR ---
REGISTERED CLIENT ASSOCIATE SUMMARY A&O TO SELF. PATIENT EFFECTIVELY COMMUNICATES NEEDS. VSS. RR EVEN AND UNLABORED ON RA. ASSISTANCE WITH PO INTAKE PROVIDED. NO PAIN OR OTHER SYMPTOMS REPORTED TO THIS RN. PATIENT OBSERVED SLEEPING THROUGHOUT THE NIGHT. BED LOW AND LOCKED. CALL LIGHT WITHIN REACH. THIS RN WILL CONTINUE TO MONITOR.
--- NOTE | 2022-07-22 05:40 | NUR ---
POWERGLIDE REMOVAL PATIENT REMOVED POWERGLIDE OF HIS OWN VOLITION. CATHETER TIP INTACT. NO SWELLING TO RIGHT ARM SITE. MINIMAL BLEEDING. FRANCE, PROPERTY MASTER, NOTIFIED OF THIS. NO SCHEDULED IV MEDICATIONS. THIS RN WILL GIVE REPORT TO JONN.
--- NOTE | 2022-07-22 19:24 | NUR ---
PT ALERT NO S/S OF ACUTE DISTRESS. SAFETY MEASURES IN PLACE REPORT GIVEN TO ON COMING NURSE.
--- NOTE | 2022-07-23 04:14 | NUR ---
AUDIT PRACTICE INTERN SUMMARY A&O TO SELF. PATIENT EFFECTIVELY COMMUNICATES NEEDS BUT REQUIRES SIGNFICANT TIME TO DO SO. VSS. RR EVEN AND UNLABORED ON RA. NO ACUTE EVENTS THROUGHOUT THE NIGHT. NO PAIN REPORTED TO THIS RN. BED LOW AND LOCKED. BED ALARM ON. CALL LIGHT WITHIN REACH. THIS RN WILL CONTINUE TO CLOSELY MONITOR.
[2022-07-23] MEDS ORDERED: SPIRONOLACTONE50 MG PO (04:58)
[2022-07-23] MEDS ORDERED: ALLO300 PO (05:17)
--- NOTE | 2022-07-23 09:35 | NUR ---
Brief supportive visit this AM. Pt more alert this AM but slow to respond. Pt reports no concerns at this time. Spoke with Primary RN Sly and discussed case. Palliative Care will remain available.
--- NOTE | 2022-07-23 19:09 | NUR ---
PT ALERT NO S/S OF ACUTE DISTRESS, SAFETY MEASURES IN PLACE. REPORT GIVEN TO ON COMING NURSE.
--- NOTE | 2022-07-24 04:00 | NUR ---
E BUSINESS SPECIALIST SUMMARY A&O TO SELF. PATIENT EFFECTIVELY COMMUNICATES NEEDS. VSS. RR EVEN AND UNLABORED ON RA. NO ACUTE EVENTS THROUGHOUT THE NIGHT. PATIENT OBSERVED SLEEPING THROUGHOUT THE NIGHT. BED LOW AND LOCKED. CALL LIGHT WITHIN REACH. THIS RN WILL CLOSELY MONITOR.
--- NOTE | 2022-07-24 19:24 | NUR ---
PT ALERT NO S/S OF ACUTE DISTRESS. SAFETY MEASURES IN PLACE. REPORT GIVEN TO ON COMING NURSE.
--- NOTE | 2022-07-25 04:27 | NUR ---
LEDY SCHAFER" SLEPT COMFORTABLY OVERNIGHT. HE HAD 2 EPISODES OF INCONTINENCE, THEN ALSO CALLED APPROPRIATELY FOR ASSISTANCE WITH THE URINAL. NO COMPLAINTS OF PAIN OR DISCOMFORT NOTED
--- NOTE | 2022-07-25 08:08 | NUR ---
pt was just moved to the chair with sit to stand, he is a/ox3, states he's doing ok, just woke up, denies pain at this time, lungs are clear a bit dim in bases, resp even and unlabored, no cough noted, hrr, trace edema noted to b/l le, ppp+1, radial pulses +2, cap refill <3sec, vs stable, afebrile, btx4, abd flat soft nontender, voids without diff, using urinal at times and incont at times, skin c/w/d, maew, chaya, call light in reach.
--- NOTE | 2022-07-25 14:32 | NUR ---
pt complaining of right hip pain, tylenol given, did sit up in chair this am, call light in reach.
--- NOTE | 2022-07-25 18:17 | NUR ---
pt has been up twice today, medicated for hip pain once, family in to see him, uvnh here to eval him, no further changes this shift. call light in reach.
[2022-07-26 05:45] LABS: BASOPHILS ABSOLUTE AUTO 0.15 K/mm3 (0.00-0.23); BASOPHILS PERCENT AUTO 2 % (0-2); EOSINOPHILS ABSOLUTE AUTO 0.27 K/mm3 (0.00-0.68); EOSINOPHILS PERCENT AUTO 3 % (0-6); Hematocrit 24.4 % (37.0-53.0); Hemoglobin 8.7 g/dL (13.5-17.5); IMMATURE GRAN ABSOLUTE AUTO 0.06 K/mm3 (0.00-0.10); IMMATURE GRAN PERCENT AUTO 1 % (0-1); LYMPHOCYTES ABSOLUTE AUTO 1.28 K/mm3 (0.84-5.20); LYMPHOCYTES PERCENT AUTO 16 % (21-46); MONOCYTES ABSOLUTE AUTO 1.05 K/mm3 (0.16-1.47); MONOCYTES PERCENT AUTO 13 % (4-13); Mean Corpuscular HGB 36.9 pg (26.0-34.0); Mean Corpuscular HGB Conc 35.7 g/dL (31.5-36.5); Mean Corpuscular Volume 103 fL (80-100); Mean Platelet Volume 11.3 fL (9.1-12.4); NEUTROPHILS ABSOLUTE AUTO 5.44 K/mm3 (1.96-9.15); NEUTROPHILS PERCENT AUTO 66 % (41-73); Platelet Count 88 K/mm3 (150-400); RDW Coefficient Variation 16.8 % (11.7-14.2); RDW Standard Deviation 62.2 fL (35.1-46.3); Red Blood Cell Count 2.36 M/mm3 (4.30-5.90); White Blood Cell Count 8.25 K/mm3 (4.00-11.30)
[2022-07-26 06:14] LABS: Bun/Creatinine Ratio 19.8 (12.0-20.0); Calcium, Blood 8.5 mg/dL (8.5-10.1); Creatinine, Blood 1.01 mg/dL (0.60-1.20); Potassium, Blood 3.9 mmol/L (3.5-5.5)
--- NOTE | 2022-07-26 07:51 | NUR ---
LEDY HAD COMPANY LAST NIGHT WHICH REALLY PICKED UP HIS SPIRITS. STILL USING SIT TO STAND TO TRANSFER. NO COMPLAINTS OF PAIN OR DISCOMFORT NOTED. STILL ULTIMATELY WANTS TO END UP AT HOME
[2022-07-26 07:54] LABS: Percent Saturation 52.3 % (20.0-50.0)
--- NOTE | 2022-07-26 09:00 | NUR ---
PLT PLEASANT COOP A/O X3 CONCRETE. JAUNDICED. PT STATES GENERERAL PAIN, TYLENOL ADMIN. HR REG, NO MURMUR NOTED. NO TELE. LUNGS CLEAR, RESP EASY, UNLABORED. R/A. BT X4 LAST BM TODAY. VOIDS INCONT. SOMETIMES TO URINAL. SIT TO STAND FOR TRANSFERS. BED IN LOW POSITION, CALL LITE IN REACH, CALLS APPROP
--- NOTE | 2022-07-26 12:11 | NUR ---
PT TO D/C TO [facility]. CALLED REPORT TO TED THOMPSON. REPORT GIVEN. PEND COVID TEST AND TRANSPORT.
[2022-07-26 12:30] LABS: Influenza A, PCR NEGATIVE (NEGATIVE); Influenza B, PCR NEGATIVE (NEGATIVE); Resp Syncytial Virus, PCR NEGATIVE (NEGATIVE); SARS-Cov-2 (COVID-19) PCR, MMC NEGATIVE (NEGATIVE)
--- NOTE | 2022-07-26 15:48 | NUR ---
PT WHEELED TO DOOR BY [facility] STAFF IN WHEELCHAIR. TRANSPORT TO [facility] LEFT [phone]
== END 2022-07-26 15:41 | DRG 682 ==
LOC: ER 12:36 → PCU 16:08 → MEDS 16:08 → ICUE 16:08 → MEDS 17:59 → ICUE 07-10 04:45 → PCU 07-16 15:45 → MEDS 07-20 21:20
PROVIDERS: Family Medicine; Internal Medicine; Physician Assistant; Student in an Organized Health Care Education/Training Program; ADMIT Internal Medicine
PROC: 0DH67UZ Insertion of Feeding Device into Stomach, Via Natural or Artificial Opening (ICD-10-PCS; principal; 2022-07-17)
DX: N17.9 Acute kidney failure, unspecified (principal); G92.8 Other toxic encephalopathy; D61.818 Other pancytopenia; E87.1 Hypo-osmolality and hyponatremia; F10.231 Alcohol dependence with withdrawal delirium; F90.9 Attention-deficit hyperactivity disorder, unspecified type; K70.10 Alcoholic hepatitis without ascites; E87.6 Hypokalemia; M79.89 Other specified soft tissue disorders; I48.91 Unspecified atrial fibrillation; K70.30 Alcoholic cirrhosis of liver without ascites; I95.1 Orthostatic hypotension; E86.1 Hypovolemia; I10 Essential (primary) hypertension; M10.9 Gout, unspecified; E78.5 Hyperlipidemia, unspecified; D63.8 Anemia in other chronic diseases classified elsewhere; F04 Amnestic disorder due to known physiological condition; K75.81 Nonalcoholic steatohepatitis (NASH); E80.6 Other disorders of bilirubin metabolism; R74.8 Abnormal levels of other serum enzymes; K21.9 Gastro-esophageal reflux disease without esophagitis; R94.5 Abnormal results of liver function studies; R74.01 Elevation of levels of liver transaminase levels; Z96.611 Presence of right artificial shoulder joint; Z20.822 Contact with and (suspected) exposure to COVID-19; Z87.19 Personal history of other diseases of the digestive system; Z79.899 Other long term (current) drug therapy; Z79.02 Long term (current) use of antithrombotics/antiplatelets; Z98.890 Other specified postprocedural states; Z79.2 Long term (current) use of antibiotics; Z79.891 Long term (current) use of opiate analgesic
CPT/HCPCS: 0241U; 36415; 70450; 71045; 73502; 76770; 80048; 80053; 80069; 81001; 82140; 82248; 82728; 83540; 83550; 83690; 83735; 83880; 84100; 84443; 85025; 85027; 85049; 87086; 92526; 92610; 93005; 93010; 93306; 93971; 94762; 96360; 97110; 97163; 97166; 97530; 97535; 99285-25; A9270; C1751; J1650; J1940; J2060; J2560; J3411; J7030; J7040; J7050

== ENCOUNTER 2022-08-09 17:21 | Inpatient (IN) | payer OTHER ==
[~2022-08-09] VITALS: Ht 180.3 cm; Wt 103.5 kg
[~2022-08-09 17:21] MED LIST changes: +SPIRONOLACTONE50 MG PO
[2022-08-09 18:16] LABS: BASOPHILS ABSOLUTE AUTO 0.02 K/mm3 (0.00-0.23); BASOPHILS PERCENT AUTO 0 % (0-2); EOSINOPHILS ABSOLUTE AUTO 0.03 K/mm3 (0.00-0.68); EOSINOPHILS PERCENT AUTO 0 % (0-6); Hemoglobin 13.3 g/dL (13.5-17.5); IMMATURE GRAN ABSOLUTE AUTO 0.06 K/mm3 (0.00-0.10); IMMATURE GRAN PERCENT AUTO 0 % (0-1); LYMPHOCYTES ABSOLUTE AUTO 1.29 K/mm3 (0.84-5.20); LYMPHOCYTES PERCENT AUTO 9 % (21-46); MONOCYTES ABSOLUTE AUTO 2.09 K/mm3 (0.16-1.47); MONOCYTES PERCENT AUTO 14 % (4-13); Mean Corpuscular HGB 35.9 pg (26.0-34.0); Mean Corpuscular HGB Conc 35.9 g/dL (31.5-36.5); Mean Corpuscular Volume 100 fL (80-100); Mean Platelet Volume 11.5 fL (9.1-12.4); NEUTROPHILS ABSOLUTE AUTO 11.16 K/mm3 (1.96-9.15); NEUTROPHILS PERCENT AUTO 76 % (41-73); Platelet Count 167 K/mm3 (150-400); RDW Standard Deviation 62.5 fL (35.1-46.3); White Blood Cell Count 14.65 K/mm3 (4.00-11.30)
[2022-08-09 18:56] LABS: Albumin, Blood 2.1 g/dL (3.4-5.0); Albumin/Globulin Ratio 0.4 (0.8-1.8); Bilirubin, Total 7.6 mg/dL (0.1-1.0); Calcium, Blood 8.2 mg/dL (8.5-10.1); Creatinine, Blood 4.78 mg/dL (0.60-1.20); Globulin, Blood 5.9 g/dL (2.2-4.0); Potassium, Blood 6.4 mmol/L (3.5-5.5)
[2022-08-09 21:01] LABS: Albumin, Blood 1.7 g/dL (3.4-5.0); Anion Gap 16 mmol/L (6-16); Blood Urea Nitrogen 88 mg/dL (8-24); Bun/Creatinine Ratio 18.1 (12.0-20.0); CO2, Blood 15 mmol/L (21-32); Calcium, Blood 8.2 mg/dL (8.5-10.1); Chloride, Blood 90 mmol/L (98-108); Creatinine, Blood 4.86 mg/dL (0.60-1.20); Glomerular Filtration Rate 13 (60-); Glucose, Blood 172 mg/dL (70-99); Phosphorus, Blood 7.4 mg/dL (2.5-4.9); Potassium, Blood 5.5 mmol/L (3.5-5.5); Sodium, Blood 121 mmol/L (136-145)
[2022-08-09 22:24] LABS: International Normalized Ratio 2.66; Prothrombin Time Results 26.2 Sec (9.7-11.5)
[2022-08-09 23:19] LABS: Albumin, Blood 1.7 g/dL (3.4-5.0); Albumin/Globulin Ratio 0.3 (0.8-1.8); Bilirubin, Total 6.8 mg/dL (0.1-1.0); Bun/Creatinine Ratio 17.8 (12.0-20.0); Calcium, Blood 8.3 mg/dL (8.5-10.1); Creatinine, Blood 4.84 mg/dL (0.60-1.20); Globulin, Blood 5.1 g/dL (2.2-4.0); Potassium, Blood 5.4 mmol/L (3.5-5.5); Total Protein, Blood 6.8 g/dL (6.4-8.2)
[2022-08-10 02:07] LABS: BASOPHILS ABSOLUTE AUTO 0.01 K/mm3 (0.00-0.23); BASOPHILS PERCENT AUTO 0 % (0-2); EOSINOPHILS ABSOLUTE AUTO 0.01 K/mm3 (0.00-0.68); EOSINOPHILS PERCENT AUTO 0 % (0-6); Hematocrit 34.3 % (37.0-53.0); Hemoglobin 12.6 g/dL (13.5-17.5); IMMATURE GRAN ABSOLUTE AUTO 0.07 K/mm3 (0.00-0.10); IMMATURE GRAN PERCENT AUTO 1 % (0-1); LYMPHOCYTES ABSOLUTE AUTO 0.99 K/mm3 (0.84-5.20); LYMPHOCYTES PERCENT AUTO 8 % (21-46); MONOCYTES PERCENT AUTO 13 % (4-13); Mean Corpuscular HGB 36.2 pg (26.0-34.0); Mean Corpuscular HGB Conc 36.7 g/dL (31.5-36.5); Mean Corpuscular Volume 99 fL (80-100); Mean Platelet Volume 11.7 fL (9.1-12.4); NEUTROPHILS ABSOLUTE AUTO 10.08 K/mm3 (1.96-9.15); NEUTROPHILS PERCENT AUTO 78 % (41-73); Platelet Count 147 K/mm3 (150-400); RDW Coefficient Variation 17.1 % (11.7-14.2); RDW Standard Deviation 61.8 fL (35.1-46.3); Red Blood Cell Count 3.48 M/mm3 (4.30-5.90); White Blood Cell Count 12.86 K/mm3 (4.00-11.30)
[2022-08-10 02:20] LABS: Magnesium, Blood 2.1 mg/dL (1.6-2.4)
[2022-08-10 02:33] LABS: Albumin, Blood 1.7 g/dL (3.4-5.0); Anion Gap 16 mmol/L (6-16); Blood Urea Nitrogen 91 mg/dL (8-24); Bun/Creatinine Ratio 19.2 (12.0-20.0); CO2, Blood 15 mmol/L (21-32); Calcium, Blood 7.8 mg/dL (8.5-10.1); Chloride, Blood 88 mmol/L (98-108); Creatinine, Blood 4.74 mg/dL (0.60-1.20); Glomerular Filtration Rate 13 (60-); Glucose, Blood 185 mg/dL (70-99); Phosphorus, Blood 7.6 mg/dL (2.5-4.9); Potassium, Blood 5.5 mmol/L (3.5-5.5); Sodium, Blood 119 mmol/L (136-145)
[2022-08-10 05:58] LABS: Hematocrit 33.7 % (37.0-53.0); Hemoglobin 12.4 g/dL (13.5-17.5)
--- NOTE | 2022-08-10 06:10 | NUR ---
SHIFT SUMMARY A/OX3, GENERALIZED WEAKNESS NOTED. TELE ST 100-120, BP STABLE; DENIES CHEST PAIN/PRESSURE. SPO2 >92% ON RA. DR. WOMACK NOTIFIED OF RECENT LABS, 3 AMPS OF SODIUM BICARB GIVEN THIS SHIFT. BLADDER SCAN OF 135 ML. NEW PG TO KALIE. SEVERAL LOOSE BM'S AFTER LACTULOSE ADMINISTRATIONS. VSS, BED IN LOWEST POSITIION WITH CALL LIGHT IN REACH. WILL CONTINUE TO MONITOR AND REPORT TO ONCOMING RN.
[2022-08-10 06:19] LABS: Albumin, Blood 1.7 g/dL (3.4-5.0); Anion Gap 18 mmol/L (6-16); Blood Urea Nitrogen 91 mg/dL (8-24); Bun/Creatinine Ratio 18.9 (12.0-20.0); CO2, Blood 16 mmol/L (21-32); Calcium, Blood 7.8 mg/dL (8.5-10.1); Chloride, Blood 87 mmol/L (98-108); Creatinine, Blood 4.81 mg/dL (0.60-1.20); Glomerular Filtration Rate 13 (60-); Glucose, Blood 171 mg/dL (70-99); Magnesium, Blood 2.2 mg/dL (1.6-2.4); Phosphorus, Blood 7.2 mg/dL (2.5-4.9); Potassium, Blood 5.2 mmol/L (3.5-5.5); Sodium, Blood 121 mmol/L (136-145)
[2022-08-10 07:31] LABS: Thyroid Stimulating Hormone 4.32 uIU/mL (0.360-4.800); Uric Acid, Blood 4.2 mg/dL (3.5-7.2)
--- NOTE | 2022-08-10 10:14 | NUR ---
CARE ASSUMPTION THIS RN ASSUMED CARE AT 0700. VSS. PATIENT IS ALERT AND ORIENTED X3. PATIENT STATED HE IS IN [place] AND THEN WHEN ASKED WHERE AT HE STATED ELIEL IN [place]. THIS RN REORIENTED THE PATIENT TO CORRECT LOCATION. PATIENT REPORTS NO PAIN. PATIENT REPROTS NO CHEST PAIN/PRESSURE. PATIENT REPORTS NO SHORTNESS OF BREATH. ABD IS ACTIVE MODERATE DISTENTION. PATIENT SKIN COLOR IS JAUNDICE, WITH BRUISING SCATTERED THROUGHOUT AND DRY SKIN. PATIENT HAS EXEROCATION TO BOTTOM AND RICHARD AREA. SEE SHIFT ASSESSMENT FOR FURTHER DETIALS. UPDATED PLAN OF CARE WITH PATIENT SIGNIFCANT OTHER AND PATIENT SISTER. PLAN OF CARE IS UP TO DATE. CALL LIGHT WITHIN REACH AND BED IN LOWEST POSITION.
[2022-08-10 10:34] LABS: Potassium, Blood 5.3 mmol/L (3.5-5.5)
[2022-08-10 14:28] LABS: Albumin, Blood 1.7 g/dL (3.4-5.0); Albumin/Globulin Ratio 0.3 (0.8-1.8); Bilirubin, Total 7.7 mg/dL (0.1-1.0); Bun/Creatinine Ratio 22.1 (12.0-20.0); Calcium, Blood 7.2 mg/dL (8.5-10.1); Creatinine, Blood 4.47 mg/dL (0.60-1.20); Potassium, Blood 5.1 mmol/L (3.5-5.5); Total Protein, Blood 6.7 g/dL (6.4-8.2)
[2022-08-10 15:49] LABS: PCO2 Arterial 25.6 mmHg (35-45); PO2 Arterial 68.5 mmHg (80-100); pH Blood Arterial 7.45 (7.35-7.45)
[2022-08-10 16:13] LABS: Source, Urine Foley catheter
[2022-08-10 16:32] LABS: Appearance, Urine Hazy (Clear); Blood, Urine 5+ (Neg); Color, Urine Amber (P-Yellow); Glucose Qualitative, Urine Neg (Neg); Ketones, Urine 1+ (Neg); Leukocyte Esterase, Urine 1+ (Neg); Nitrite, Urine Neg (Neg); Protein, Urine 2+ (Neg); Urobilinogen, Urine 1+ (Normal)
[2022-08-10 17:07] LABS: Bilirubin, Urine 1+ (Neg)
[2022-08-10 17:11] LABS: Squamous Epithelial Cells Not Seen /hpf (Few)
[2022-08-10 17:13] LABS: Bacteria Many /hpf
[2022-08-10 17:14] LABS: Renal Epithelial Rare /hpf (0-Rare)
--- NOTE | 2022-08-10 17:33 | NUR ---
SHIFT SUMMARY PATIENT RECEIVED LIN CATH DUE TO BLADDER BEING SCANNED AND 400 IN BLADDER AND PATIENT UNABLE TO VOID. PATIENT HAD ONE EPISODE OF AN UNMEASURE VOID AT THE START OF THIS RN'S SHIFT AND PATIENT HAS TRIED SEVERAL TIMES TO VOID SINCE AND WAS UNABLE OR THOUGHT THAT HE DID. LIN CATH IN PLACE AND DRAINING WITH GRAVITY TEA COLOR URINE. PATIENT HAD MULTPLE BOWEL MOVEMENTS THIS SHIFT. NEURO REMAINS INTACT. VSS. PATIENT USES CALL LIGHT APPROPRIATELY AND IS ABLE TO MAKE NEEDS KNOWN. PLAN OF CARE IS UP TO DATE. PATIENT DANGLED AT BEDSIDE. THIS RN AND PATIENT DEMOLITION EXPERT ATTEMPTED TO GET PATIENT OUT OF BED TO BEDSIDE COMODE, BUT PATIENT WAS TOO WEAK. PERFORMED RANGE OF MOTION AT BED. CALL LIGHT WITHIN REACH AND BED IN LOWEST POSITION.
[2022-08-10 18:48] LABS: Albumin, Blood 1.8 g/dL (3.4-5.0); Albumin/Globulin Ratio 0.4 (0.8-1.8); Bilirubin, Total 7.8 mg/dL (0.1-1.0); Calcium, Blood 7.1 mg/dL (8.5-10.1); Creatinine, Blood 4.54 mg/dL (0.60-1.20); Globulin, Blood 4.9 g/dL (2.2-4.0); Potassium, Blood 5.2 mmol/L (3.5-5.5); Total Protein, Blood 6.7 g/dL (6.4-8.2)
[2022-08-10 22:24] LABS: Albumin, Blood 1.7 g/dL (3.4-5.0); Anion Gap 18 mmol/L (6-16); Blood Urea Nitrogen 104 mg/dL (8-24); Bun/Creatinine Ratio 21.1 (12.0-20.0); CO2, Blood 17 mmol/L (21-32); Chloride, Blood 86 mmol/L (98-108); Creatinine, Blood 4.93 mg/dL (0.60-1.20); Glomerular Filtration Rate 13 (60-); Glucose, Blood 162 mg/dL (70-99); Phosphorus, Blood 7.9 mg/dL (2.5-4.9); Potassium, Blood 5.1 mmol/L (3.5-5.5); Sodium, Blood 121 mmol/L (136-145)
--- NOTE | 2022-08-10 22:40 | NUR ---
CALL TO DR. DESTINEE WOMACK PER HIS REQUEST. MOST RECENT RESULTS OF RENAL PANEL PROVIDED. NEW ORDERS RECEIVED.
--- NOTE | 2022-08-11 00:55 | NUR ---
CALL TO DR. DESTINEE WOMACK REGARDING PATIENT BLOOD PRESSURE AND URINE OUTPUT SINCE LAST DOSE OF BUMEX AT 20:05. CURRENT BLOOD PRESURE IS 99/57, DOWN FROM 119/73 FROPM START OF SHIFT. URINE OUTPUT THIS SHIFT IS 425 mL. REQUESTED BLOOD PRESSURE PARAMETERS FOR ADMINISTRATION OF BUMEX. ORDER RECEIVED TO DISCONTINUE ORDER FOR BUMEX AND NEW ORDER FOR 100 MG IV LASIX ONCE NOW.
--- NOTE | 2022-08-11 01:32 | NUR ---
10 MG IV LASIX ADMINISTERED OVER 5 MINUTES.
--- NOTE | 2022-08-11 04:15 | NUR ---
PATIENT HAS HAD JUST 140 mL OF URINE OUTPUT PER LIN CATHETER SINCE 23:30 LAST EVENING AND 10 MG DOSE OF IV LASIX. FLUSHED LIN WITH 50 mL SALINE. NO OBSTRUCTION AND SALINE FLOWED BACK OUT WITH APPROXIMATELY 15 mL URINE. BLADDER SCAN CONDUCTED SHOWING 16 - 23 mL URINE IN THE BLADDER. AWAITING LAB RESULTS AND WILL CALL DR. WOMACK.
[2022-08-11 04:40] LABS: Hematocrit 30.9 % (37.0-53.0); Hemoglobin 11.4 g/dL (13.5-17.5)
[2022-08-11 04:58] LABS: Magnesium, Blood 2.3 mg/dL (1.6-2.4)
--- NOTE | 2022-08-11 05:15 | NUR ---
CALLED LABORATORY TO INQUIRE ABOUT PENDING RESULTS FOR 04:15 LAB DRAW. PER AVIATION ORDNANCE OFFICER, EQUIPMENT MALFUNCTION IN THE LAB REQUIRING MANUAL PROCESSING WHICH IS CAUSING DELAYS IN RESULTS.
[2022-08-11 06:07] LABS: Albumin, Blood 1.6 g/dL (3.4-5.0); Anion Gap 21 mmol/L (6-16); Blood Urea Nitrogen 109 mg/dL (8-24); Bun/Creatinine Ratio 20.6 (12.0-20.0); CO2, Blood 14 mmol/L (21-32); Chloride, Blood 88 mmol/L (98-108); Glomerular Filtration Rate 12 (60-); Glucose, Blood 121 mg/dL (70-99); Phosphorus, Blood 8.2 mg/dL (2.5-4.9); Potassium, Blood 5.1 mmol/L (3.5-5.5); Sodium, Blood 123 mmol/L (136-145)
--- NOTE | 2022-08-11 06:15 | NUR ---
SPOKE TO DR. DESTINEE WOMACK IN PERSON REGARDING CRITICAL PHOSPHOROUS LEVEL, OTHER RESULTS OF RENAL PANEL, REDUCED URINE OUTPUT, AND HYPOTENSION. ORDER RECEIVED TO CONSULT DR. ANGELINA HUDSON FOR PLACEMENT OF A PERM-DIALYSIS CATHETER. CONSULT CALLED TO ANSWERING SERVICE BY KILN PULLER SHARAD GRANGER. SHOULD DR. HUDSON NOT BE AVAILABLE TO PLACE THE PERM-CATH, ORDER RECEIVED TO CONSULT DR. PEPE FOR TEMP-DIALYSIS CATHETER PLACEMENT AND TRANSER PATIENT TO ICU FOR PROCEDURE. NURSE NOTIFICATION ORDER PLACED WITH THESE INSTRUCTIONS. MR. COREAS CONTINUES TO BE ORIENTED TO SELF ONLY, REQUIRES FREQUENT REORIENTATION TO HIS LIMITATIONS (HE WANTS TO WALK OUTSIDE, GO TO THE KITCHEN) DUE TO PROFOUND WEAKNESS AND DIZZINESS WITH STANDING. HE THINKS HE IS AT HOME AND HAS CALLED OUT FOR HIS GIRLFRIEND PONCE A FEW TIMES. HE IS PLEASANT AND REDIRECTABLE.
--- NOTE | 2022-08-11 07:30 | NUR ---
RAPID RESPONSE: During bedside shift report pt noted to have AMS, decreased responsiveness with hypotension and respiratory changes. Pt placed in reverse tredelenburg, rapid response called. RT, ICU CN, physician, and other sales support worker arrived at bedside. NS bolus initiated and pt placed on NRB. Xfer via bed to ICU at approx 0715, rpt to ICU day RN from PCU noc RN completed at bedside.
[2022-08-11 07:41] LABS: Base Excess Venous -13.8 mmol/L; Bicarbonate Venous 14.4 mmol/L (24.0-30.0); PCO2 Venous 33.9 mmHg (38-42)
[2022-08-11 07:43] LABS: pH Blood Venous 7.22 (7.34-7.37)
--- NOTE | 2022-08-11 07:55 | NUR ---
PT ARRIVAL/PURCHASING ADMINISTRATOR PT ARRIVED ON THE UNIT AT 0715 AFTER A RAPID RESPONSE WAS CALLED ON HIM. HE WAS A&O TO SELF AND NOT FOLLOWING DIRECTIONS, EYES WERE ROLLED UP AND HE WAS MUMBELING. THE PT WAS IN SINUS TACH 100'S-110'S. HYPOTESIVE WITH SBPs IN THE 60'S. 1L BOLUS OF NS STARTED AT THE BEDSIDE. HE WAS ON A NRB MASK AT 15L RR IN THE 30'S. THE PT'S SKIN AND SCLERA ARE JAUNDICED. PT'S LIN IS PATENT AND DRAINING SCANT URINE TO GRAVITY. TRACE EDEMA NOTED TO BLE. 0744 LEVOPHED STARTED AT 4MCG AND TITRATED UP TO 8MCG TO KEEP MAPS >60. S/O AT THE BEDSIDE ALONG WITH FAMILY. PLAN IS TO PLACE A DILAYSIS CATH AND RUN HD PER DR. WOMACK. WILL CONTINUE TO MONITOR.
[2022-08-11 07:58] LABS: Bun/Creatinine Ratio 19.4 (12.0-20.0); Calcium, Blood 6.5 mg/dL (8.5-10.1); Creatinine, Blood 5.67 mg/dL (0.60-1.20); Potassium, Blood 5.3 mmol/L (3.5-5.5)
[2022-08-11 08:30] LABS: International Normalized Ratio 3.39; Prothrombin Time Results 32.9 Sec (9.7-11.5)
[2022-08-11 11:57] LABS: International Normalized Ratio 2.19
[2022-08-11 12:03] LABS: Prothrombin Time Results 21.8 Sec (9.7-11.5)
--- NOTE | 2022-08-11 12:48 | NUR ---
PT UPDATE... 1130:THE PT WAS ON THE BEDPAN AND WHEN THE PT WAS TAKEN OFF THIS RN NOTICED THERE WAS MARY RED BLOOD MIXED WITH THE LIQUID BROWN STOOLS. AT 1240 THE PT'S O2 SATS DROPPED DOWN INTO THE 70'S WITH A GOOD PLETH/WAVEFORM, HE WAS PUT BACK ON NRB MASK AT 15L AND RT WAS CALLED. THE PT'S BP ALSO BECAME UNSTABLE WITH MAPS <60 AND SBPs <70 THE LEVOPHED WAS INCREASED FROM 6MCG TO 8MCG THEN TO 10MCG TO KEEP MAPS >65. THE PT IS ALSO BECOMING MORE CONFUSED. DR. PEPE NOTIFIED, NEW ORDERS FOR BLOOD CULTURES, ROCEPHIN AND A STAT CBC. WILL CONTINUE TO MONITOR.
[2022-08-11 13:08] LABS: BASOPHILS ABSOLUTE AUTO 0.04 K/mm3 (0.00-0.23); BASOPHILS PERCENT AUTO 0 % (0-2); EOSINOPHILS PERCENT AUTO 0 % (0-6); Hematocrit 30.4 % (37.0-53.0); Hemoglobin 10.7 g/dL (13.5-17.5); IMMATURE GRAN ABSOLUTE AUTO 0.16 K/mm3 (0.00-0.10); IMMATURE GRAN PERCENT AUTO 1 % (0-1); LYMPHOCYTES ABSOLUTE AUTO 0.79 K/mm3 (0.84-5.20); LYMPHOCYTES PERCENT AUTO 4 % (21-46); MONOCYTES ABSOLUTE AUTO 2.68 K/mm3 (0.16-1.47); MONOCYTES PERCENT AUTO 14 % (4-13); Mean Corpuscular HGB 36.3 pg (26.0-34.0); Mean Corpuscular HGB Conc 35.2 g/dL (31.5-36.5); Mean Corpuscular Volume 103 fL (80-100); Mean Platelet Volume 12.1 fL (9.1-12.4); NEUTROPHILS ABSOLUTE AUTO 15.72 K/mm3 (1.96-9.15); NEUTROPHILS PERCENT AUTO 81 % (41-73); Platelet Count 124 K/mm3 (150-400); RDW Coefficient Variation 17.7 % (11.7-14.2); RDW Standard Deviation 66.8 fL (35.1-46.3); Red Blood Cell Count 2.95 M/mm3 (4.30-5.90); White Blood Cell Count 19.39 K/mm3 (4.00-11.30)
--- NOTE | 2022-08-11 17:25 | NUR ---
DIALYSIS: ARRIVED IN ICU ROOM, REPORT GIVEN TO PRIMARY NURSE, TX INITIATED AT 1616 AFTER 15 MIN OF TX PATIENT'S BP CRASHED AND PT STARTING TO LOOSE CONSCIOUSNESS DIFFICULTY AROUSING, TREATMENT STOPPED AND RETURNED BLODD STILL WITH LOW BP READINGS, CHARGE NURSE AT BEDSIDE INITIATED RAPID RESPONSE TEAM. RIGHT IJ ACCESS DISCONNECTED AND CAPPED.
--- NOTE | 2022-08-11 18:27 | NUR ---
SHIFT SUMMARY... AT APROX [address] PEPE PLACED A TRIALYSIS CATH TO THE PT'S RIGHT IJ AFTER HE WAS GIVEN 4 UNITS OF FFP AND VITAMIN K D/T ELEVATED PT/INR. THE PT TOLERATED THE PROCEDURE WELL. THE PT WAS STABLE ON BIPAP OF 16/8 AND 65% UNTIL APROX 1630 WHEN HE WAS STARTED ON DIALYSIS, 19 MINUTES INTO DIALYSIS THE PT'S O2 SATS DROPPED DOWN TO THE 70'S, MAPS <40 AND HE BECAME UNRESPONSIVE. DIALYSIS WAS STOPPED AND DR. PEPE WAS NOTIFIED. DR. PEPE ARRIVED AND THE PT WAS INTUBATED. AT 1659 HE WAS GIVEN 50MCG IV PROPOFOL PUSH, 1700 THE ET 8.0 ET TUBE WAS PLACED AT 25 AT THE TEETH. AT 1701 HE WAS GIVEN ANOTHER 50MCG IV PROPOFOL PUSH AND THE OG TUBE WAS PLACED BY . XRAY CONFIRMATION OF ET TUBE AND OG TUBE PLACEMENT WAS GIVEN BY DR. PEPE. THE PT'S LEVOPHED IS RUNNING AT 30MCG, SAHRA WAS STARTED AND IS RUNNING AT 100MCG AND VASO AT 0.04UNITS/HR. PROPOFOL IS RUNNING AT 50MCG WITH A RAAS OF 0 TO -1. PROTONIX GTT AND SANDOSTATIN GTT STARTED WELL. A GI CONSULT WAS PLACED BY DR. PEPE AND DR. MARAVILLA ASSESSED THE PT AT THE BEDSIDE THIS AFTERNOON PRIOR TO HIS INTUBATION. THE PT'S OG TUBE WAS SET TO LOW INT SUCTION AND 450MLS OF BLACK/COFFEE GROUND FLUID WAS REMOVED. THE PT'S LIN DRAINED 45MLS OF DARK YELLOW URINE. MULTIPLE FAMILY AT THE BEDSIDE T/O THIS SHIFT. WILL CONTINUE TO MONITOR UNTIL REPORT IS GIVEN TO ONCOMING RN.
[2022-08-11 18:56] LABS: PCO2 Arterial 25.8 mmHg (35-45); PO2 Arterial 232 mmHg (80-100); pH Blood Arterial 7.28 (7.35-7.45)
--- NOTE | 2022-08-11 22:46 | NUR ---
ASSUMPTION OF CARE/ASSESSMENT: ASSUMED CARE OF PT AT 1900. PT IS CURRENTLY INTUBATED AND SEDATED WITH VENT SETTINGS AC/VC 14/400/5/40% AND PROPOFOL GTT @ 50 MCG. PT IS RESPONSIVE TO PAIN; PUPILS ARE SLUGGISH AND SCLERA HAS YELLOW TINT. PT LUNG SOUNDS ARE CLEAR WITH DIM BASES; SPO2 96<, TACHYPNEIC WITH RR 30-33. SR-ST ON MONITOR WITH HR 90-100, AND SBP 110; LEVO GTT @ 20, SAHRA GTT @ 80, VASO GTT @ 0.04. PT ABD IS ROUND AND MILDLY DISTENDED. OGT IS PRESENT AND ON LIS WITH BLACK, LIQUID OUTPUT. ON PREVIOUS SHIFT PT HAD BLOODY BM; PROONIX GTT @ 10 MLS/HR, SANDOSTATIN GTT @ 25 MLS/HR. PPP X 4, SKIN INTACT AND WARM, SLIGHT YELLOW TINT TO SKIN. PT HAS RIJ TRIALYSIS CATHETER, JASIEL/KALIE POWERGLIDE AND RAC PIV PRESENT AND PATENT. PT CURRENTLY RECIEVING 1 OUT OF 2 UNITS OF PRBC'S. PT SISTER AND NIECE BY AND UPDATED ON PT'S STATUS, ALL QUESTIONS ANSWERED AT THIS TIME. DR PEPE AND VU UPDATED ON PT'S BLOOD GAS RESULTS AND NEW ORDERS RECIEVED (SEE EMAR). CURRENTLY SODIUM BICARB GTT @ 125 MLS/HR. BED LOWERED, WILL CONTINUE TO MONITOR.
[2022-08-12 04:31] LABS: BASOPHILS ABSOLUTE AUTO 0.03 K/mm3 (0.00-0.23); BASOPHILS PERCENT AUTO 0 % (0-2); Hematocrit 29.8 % (37.0-53.0); Hemoglobin 10.9 g/dL (13.5-17.5); LYMPHOCYTES ABSOLUTE AUTO 0.95 K/mm3 (0.84-5.20); LYMPHOCYTES PERCENT AUTO 8 % (21-46); MONOCYTES ABSOLUTE AUTO 0.88 K/mm3 (0.16-1.47); MONOCYTES PERCENT AUTO 7 % (4-13); Mean Corpuscular HGB 36.5 pg (26.0-34.0); Mean Corpuscular HGB Conc 36.6 g/dL (31.5-36.5); Mean Corpuscular Volume 100 fL (80-100); Mean Platelet Volume 12.3 fL (9.1-12.4); NRBC ABSOLUTE 0.02 K/mm3 (0.00-0.02); NRBC Auto 0.2 /100 WBC (0.0-0.2); Platelet Count 89 K/mm3 (150-400); RDW Coefficient Variation 19.9 % (11.7-14.2); RDW Standard Deviation 72.1 fL (35.1-46.3); Red Blood Cell Count 2.99 M/mm3 (4.30-5.90); White Blood Cell Count 12.02 K/mm3 (4.00-11.30)
[2022-08-12 04:33] LABS: EOSINOPHILS PERCENT AUTO 0 % (0-6); IMMATURE GRAN ABSOLUTE AUTO 0.11 K/mm3 (0.00-0.10); IMMATURE GRAN PERCENT AUTO 1 % (0-1); NEUTROPHILS ABSOLUTE AUTO 10.05 K/mm3 (1.96-9.15); NEUTROPHILS PERCENT AUTO 84 % (41-73)
[2022-08-12 05:00] LABS: Magnesium, Blood 2.1 mg/dL (1.6-2.4); Thyroid Stimulating Hormone 1.97 uIU/mL (0.360-4.800)
[2022-08-12 05:04] LABS: International Normalized Ratio 2.42
[2022-08-12 05:08] LABS: Albumin, Blood 1.6 g/dL (3.4-5.0); Albumin/Globulin Ratio 0.4 (0.8-1.8); Bilirubin, Direct 3.7 mg/dL (0.0-0.3); Bilirubin, Indirect 3.4 mg/dL (0.1-0.7); Bilirubin, Total 7.1 mg/dL (0.1-1.0); Bun/Creatinine Ratio 19.7 (12.0-20.0); Creatinine, Blood 5.08 mg/dL (0.60-1.20); Globulin, Blood 3.8 g/dL (2.2-4.0); Total Protein, Blood 5.4 g/dL (6.4-8.2)
[2022-08-12 05:13] LABS: Calcium, Blood 5.2 mg/dL (8.5-10.1); Phosphorus, Blood 8.3 mg/dL (2.5-4.9)
[2022-08-12 05:19] LABS: PCO2 Arterial 29.3 mmHg (35-45); PO2 Arterial 70.1 mmHg (80-100)
[2022-08-12 05:25] LABS: pH Blood Arterial 7.28 (7.35-7.45)
--- NOTE | 2022-08-12 07:15 | NUR ---
SHIFT SUMMARY: NO ACUTE CHANGES THROUGHOUT THE SHIFT. PT RECIVED IN TOTAL 2 UNITS OF PRBC'S THIS SHIFT; AM HGB AT 10.7. MORNING LABS HAS SOME CRITICAL VALUES THAT WERE CALLED INTO DR WOMACK. PT REMAINS VENTILATED WITH VENT SETTINGS AC/VC 14/400/8/65%; SPO2 90<, LUNG SOUNDS REMAIN CLEAR, RR 26-30. PT SR ALL NIGHT WITH HR 90'S, AND SBP 90-100, MAP 65<. LEVO GTT @ 18 MCG, SAHRA @ 50, VASO GTT @ 0.04, AND BICARB @ 125. PT HAD A LOOSE BOWEL MOVEMENT THIS MORNING AND A RECTAL TUBE WAS PLACED. PT URINE OUTPUT AT [address] WOMACK BY THIS MORNING TO ASSESS PT; CLARIFIED ORDERS FOR THE INITIATION OF 24 HOUR URINE COLLECTION AND PASSED THIS ON TO THE DAY SHIFT RN. S/O ALEJANDRO BY THIS MORNING AND UPDATED ON NIGHT TIME EVENTS AND PT'S CURRENT STATUS. BEDSIDE SHIFT REPORT GIVEN TO DAYANA ARCE.
--- NOTE | 2022-08-12 08:46 | NUR ---
AM NOTE... ASSUMED CARE OF PT AT 0700 THE PT IS INTUBATED AND SEDATED PROPOFOL IS RUNNING AT 40MCG. VENT SETTINGS ARE AC/VC: 14/400/8/70% WITH O2 SATS 88-90% L/S CLEAR T/O WITH SLIGH COARSNESS IN THE UPPER LOBES. SCANT THIN CLEAR SECRETIONS NOTED WITH SUCTIONING. THE PT IS ON LEVOPHED AT 18MCG AT THE START OF THIS SHIFT BUT THAT WAS TITRATED UP TO 28MCG TO KEEP MAPS >65. SAHRA IS RUNNING AT 50MCG AND VASOPRESSIN AT 0.04UNITS/HR. THE PT IS IN SR IN THE 90'S. HIS LLE HAS 1+ EDEMA HIS RLE HAS TRACE AND HIS HANDS HAVE DEPENDENT EDEMA. BT PRESENT AND HYPOACTIVE, RECTAL TUBE IS PATENT AND DRAINING TO GRAVITY. THE PT'S LIN IS PATENT AND DRAINING TO GRAVITY. WILL CONTINUE TO MONITOR.
--- NOTE | 2022-08-12 12:47 | NUR ---
Pt is a 62 year old male who is currently in multisystem organ failure. The pt was initially admitted for alcohol withdrawal on 07/08/22, then d/c'd on 07/16. He returned to the ED on 08/09/22 with dizzyness and weakness. Since admission, he has been in liver failure, kidney failure, and is currently on a ventilator after a failed attempt at dialysis yesterday. He may be septic, because he also has hypoxemia and hemodynamic instability. INR remains high. Pt's family are very involved. We had a discussion this am with Dr. Pham, with an update from him on pt's condition, then follow up discussion on pt's code status. Family called to meet a second time to further discuss code status, and so far have not made any changes. They are continuing the discussion, and Palliative care will remain available.
--- NOTE | 2022-08-12 13:14 | NUR ---
PT UPDATE.... THE SAHRA GTT HAS BEEN TITRATED OFF SINCE 1230 WITH MAPS SO FAR STABLE >65. LEVOPHED GTT IS RUNNING AT 30MCG AND THE VASOPRESSIN IS RUNNING AT 0.04 UNITS/HR. THIS RN NOTICED WHEN THE PT'S BP DROPS HIS O2 SATS DROP WELL PROVIDER IS AWARE. THE PT'S FAMILY HAD A MEETING WITH DR. PEPE AND PALLIATIVE CARE RN LISSETH. WILL CONTINUE TO MONITOR.
--- NOTE | 2022-08-12 14:48 | NUR ---
DIALYSIS: ARRIVED IN ICU ROOM, GIVEN REPORT TO PRIMARY NURSE, PT IN BED UNDER SEDATION, ON VENTILATOR. DIALYSIS TX INITIATED AT 1350, ALBUMIN DRIP STARTED WITH TX. PT'S S02 DROPS TO 70% 20 MINS TO TX, RT IN ROOM, PRIMARY NURSE AND FAMILY. BLOOD RETURNED AND TREATMENT TERMINATED, R IJ DIALYSIS ACCESS LOCKED WITH SODIUM CITRATE AND CAPPED. DR. WOMACK NOTIFIED.
[2022-08-12 17:03] LABS: Albumin, Blood 1.8 g/dL (3.4-5.0); Anion Gap 20 mmol/L (6-16); Blood Urea Nitrogen 92 mg/dL (8-24); Bun/Creatinine Ratio 19.3 (12.0-20.0); CO2, Blood 16 mmol/L (21-32); Chloride, Blood 94 mmol/L (98-108); Creatinine, Blood 4.77 mg/dL (0.60-1.20); Glomerular Filtration Rate 13 (60-); Glucose, Blood 216 mg/dL (70-99); Phosphorus, Blood 8.4 mg/dL (2.5-4.9); Potassium, Blood 5.2 mmol/L (3.5-5.5); Sodium, Blood 130 mmol/L (136-145)
--- NOTE | 2022-08-12 18:16 | NUR ---
SHIFT SUMMARY... THE PT CONTINUES ON LEVOPHED AT 30MCG, SAHRA 225MCG AND VASOPRESSIN AT 0.04U/HR TO KEEP MAPS >65. THE PT'S VENT SETTINGS ARE AC/VC:14/40/8/80% WITH O2 SATS 90-94%. IT IS NOTED THAT WHEN THE PT'S BP TRENDS DOWN THE PT'S O2 SATS TREND DOWN WELL. THE PT'S O2 SATS ALSO IMPROVE WHEN THE PT'S HEAD OF BED IS 30 DEGREES OR LESS. THE PT'S DIALYSIS ATTEMPT THIS AFTERNOON FAILED D/T THE PT'S O2 SATS DROPPING DOWN TO THE LOW 70'S 20 MINS INTO THE TREATMENT, PROVIDERS AWARE. THE PT'S LIN IS PATENT AND DRAINED 200MLS OF DARK YELLOW URINE TO GRAVITY. THE PT'S FAMILY HAS BEEN AT THE BEDSIDE MOST OF THIS SHIFT. ALL HAVE BEEN UPDATED BY DR. PEPE AND THIS RN. THE PT'S DAUGHTER GERARD IS THE POINT OF CONTACT. WILL CONTINUE TO MONITOR UNTIL REPORT IS GIVEN TO ONCOMING RN.
[2022-08-13 03:02] LABS: PCO2 Arterial 39.7 mmHg (35-45); PO2 Arterial 81.7 mmHg (80-100)
[2022-08-13 03:37] LABS: International Normalized Ratio 3.86; Prothrombin Time Results 37.1 Sec (9.7-11.5)
[2022-08-13 03:43] LABS: Alanine Aminotransfer (ALT/SGP 186 U/L (12-78); Albumin, Blood 1.3 g/dL (3.4-5.0); Albumin/Globulin Ratio 0.4 (0.8-1.8); Alk Phos 149 U/L (50-136); Anion Gap 21 mmol/L (6-16); Aspartate Aminotrans (AST/SGOT 714 U/L (12-37); Bilirubin, Direct 3.6 mg/dL (0.0-0.3); Bilirubin, Indirect 1.5 mg/dL (0.1-0.7); Bilirubin, Total 5.1 mg/dL (0.1-1.0); Blood Urea Nitrogen 87 mg/dL (8-24); Bun/Creatinine Ratio 17.1 (12.0-20.0); CO2, Blood 13 mmol/L (21-32); Chloride, Blood 94 mmol/L (98-108); Creatinine, Blood 5.08 mg/dL (0.60-1.20); Globulin, Blood 3.5 g/dL (2.2-4.0); Glomerular Filtration Rate 12 (60-); Glucose, Blood 174 mg/dL (70-99); Magnesium, Blood 2.2 mg/dL (1.6-2.4); Sodium, Blood 128 mmol/L (136-145); Total Protein, Blood 4.8 g/dL (6.4-8.2)
[2022-08-13 03:46] LABS: Hematocrit 29.6 % (37.0-53.0); Hemoglobin 9.9 g/dL (13.5-17.5); Mean Corpuscular HGB 35.9 pg (26.0-34.0); Mean Corpuscular HGB Conc 33.4 g/dL (31.5-36.5); Mean Platelet Volume 12.5 fL (9.1-12.4); NRBC Auto 0.5 /100 WBC (0.0-0.2); Platelet Count 85 K/mm3 (150-400); RDW Coefficient Variation 21.4 % (11.7-14.2); RDW Standard Deviation 84.1 fL (35.1-46.3); Red Blood Cell Count 2.76 M/mm3 (4.30-5.90); White Blood Cell Count 18.23 K/mm3 (4.00-11.30)
[2022-08-13 03:47] LABS: Mean Corpuscular Volume 107 fL (80-100)
[2022-08-13 05:49] LABS: BAND PERCENT MAN 20 % (0-8); BASOPHILS PERCENT MAN 0 % (0-2); EOSINOPHILS PERCENT MAN 0 % (0-6); LYMPHOCYTES ABSOLUTE MAN 1.45 K/mm3 (0.84-5.20); LYMPHOCYTES PERCENT MAN 8 % (21-46); METAMYELOCYTE ABSOLUTE MAN 0.18 K/mm3 (0.00-0.00); METAMYELOCYTE PERCENT MAN 1 % (0-0); MONOCYTES ABSOLUTE MAN 0.54 K/mm3 (0.16-1.47); MONOCYTES PERCENT MAN 3 % (4-13); MYELOCYTE ABSOLUTE MAN 0.36 K/mm3 (0.00-0.00); MYELOCYTE PERCENT MAN 2 % (0-0); NEUTROPHILS ABSOLUTE MAN 15.67 K/mm3 (1.96-9.15); SEG NEUTROPHILS PERCENT MAN 66 % (41-73); TOTAL CELLS COUNTED 100
[2022-08-13 05:53] LABS: Calcium, Blood <5.0 mg/dL (8.5-10.1)
[2022-08-13 05:54] LABS: Phosphorus, Blood 9.7 mg/dL (2.5-4.9); Potassium, Blood 6.5 mmol/L (3.5-5.5)
--- NOTE | 2022-08-13 07:05 | NUR ---
PATIENT HAD INCREASING O2 AND VASOPRESSOR DEMANDS OVERNIGHT. DR NOTIFIED OF CRITICAL LAB VALUES AND CAME BEDSIDE TO EVALUATE PATIENT. 10 UNITS IV INSULIN WITH D50 AND 2 AMPS OF SODIUM BICARB GIVEN TO PATIENT. [facility] 6[facility] 2G MAG PUSH GIVEN AND TWO DEFIBRILLATION ATTEMPTS. NO CHANGE TO RHYTHM. FAMILY NOTIFIED AND CAME TO HOSPITAL. FAMILY DECIDED TO MAKE PATIENT COMFORT CARE AFTER TALKING WITH
--- NOTE | 2022-08-13 07:47 | NUR ---
"Spiritual Care | Comfort Care nurse request. Pt. is intubated and on comfort care. Many grieving family are present. Made initial assessment of the measure of cuauhtemoc in the family, and facilitated a brief family life review. Family members displayed various levels of grief, and verbalized that they are waiting for the Pts. mother to arrive. With the support of the family present we gathered bedside and prayed for the Pt. Family verbalized gratitude for the spiritual care visit."
--- NOTE | 2022-08-13 08:25 | NUR ---
ASUMED CARE REPORT FROM YUAN THOMPSON AT 0700. PT INTUBATED. PT TRANSITIONED TO COMFORT CARE AT SHIFT CHANGE. AWAITING FAMILY. EXTUBATED AT 0822, TOD 0822.
--- NOTE | 2022-08-13 09:41 | NUR ---
"Spiritual Care | EOL care Pt. passed prior to extubation and some family members are present. Facilitate pastorl care and offer comfort and EOL grief education. Prayed with Family memeber that are present. Many of the family have moved into the ICU waiting area. Met with Pts. daughter Crystal who confirms that the family has chosen [facility] in [place] as their home. Family verbalizes gratitude for the spiritual care visit."
--- NOTE | 2022-08-13 11:14 | NUR ---
"Spiritual Care | One last visitor After Pts. family departed, there was one more visitor. This maintenance worker house trailer accompanied the guest who identified themselves as the Pts. ex-. Gave pastoral encouragement to the guest. Guest verbalized gratitude for the spiritual care support before departing."
[2022-08-14 04:40] LABS: HBSAG SCREEN Negative (Negative); HCV AB Non Reactive (Non Reactive); HEP A AB, IGM Negative (Negative); HEP B CORE AB, IGM Negative (Negative)
== END 2022-08-13 08:22 | DRG 441 ==
LOC: ER 17:21 → PCU 22:44 → ICUW 22:44 → PCU 23:11 → ICUW 08-11 07:13
PROVIDERS: Internal Medicine; Internal Medicine Critical Care Medicine; Internal Medicine Nephrology; Student in an Organized Health Care Education/Training Program; ADMIT Internal Medicine
PROC: 4A133R1 Monitoring of Arterial Saturation, Peripheral, Percutaneous Approach (ICD-10-PCS; principal; 2022-08-09)
PROC: 3E02340 Introduction of Influenza Vaccine into Muscle, Percutaneous Approach (ICD-10-PCS; 2022-08-09)
PROC: 02HV33Z Insertion of Infusion Device into Superior Vena Cava, Percutaneous Approach (ICD-10-PCS; 2022-08-11)
PROC: 5A1D70Z Performance of Urinary Filtration, Intermittent, Less than 6 Hours Per Day (ICD-10-PCS; 2022-08-11)
PROC: 30233N1 Transfusion of Nonautologous Red Blood Cells into Peripheral Vein, Percutaneous Approach (ICD-10-PCS; 2022-08-11)
PROC: 30233K1 Transfusion of Nonautologous Frozen Plasma into Peripheral Vein, Percutaneous Approach (ICD-10-PCS; 2022-08-11)
PROC: B548ZZZ Ultrasonography of Superior Vena Cava (ICD-10-PCS; 2022-08-11)
PROC: 3E033XZ Introduction of Vasopressor into Peripheral Vein, Percutaneous Approach (ICD-10-PCS; 2022-08-11)
PROC: 5A1945Z Respiratory Ventilation, 24-96 Consecutive Hours (ICD-10-PCS; 2022-08-11)
PROC: 0BH17EZ Insertion of Endotracheal Airway into Trachea, Via Natural or Artificial Opening (ICD-10-PCS; 2022-08-11)
PROC: 5A09357 Assistance with Respiratory Ventilation, Less than 24 Consecutive Hours, Continuous Positive Airway Pressure (ICD-10-PCS; 2022-08-11)
PROC: 02HV33Z Insertion of Infusion Device into Superior Vena Cava, Percutaneous Approach (ICD-10-PCS; 2022-08-12)
DX: K76.7 Hepatorenal syndrome (principal); J96.01 Acute respiratory failure with hypoxia; N17.0 Acute kidney failure with tubular necrosis; E87.1 Hypo-osmolality and hyponatremia; K92.2 Gastrointestinal hemorrhage, unspecified; I47.20 Ventricular tachycardia, unspecified; G93.1 Anoxic brain damage, not elsewhere classified; K76.6 Portal hypertension; E87.4 Mixed disorder of acid-base balance; R65.10 Systemic inflammatory response syndrome (SIRS) of non-infectious origin without acute organ dysfunction; I28.0 Arteriovenous fistula of pulmonary vessels; Z51.5 Encounter for palliative care; K76.89 Other specified diseases of liver; N18.9 Chronic kidney disease, unspecified; K70.30 Alcoholic cirrhosis of liver without ascites; E87.5 Hyperkalemia; E83.39 Other disorders of phosphorus metabolism; E83.51 Hypocalcemia; I95.9 Hypotension, unspecified; R74.01 Elevation of levels of liver transaminase levels; D63.1 Anemia in chronic kidney disease; E88.09 Other disorders of plasma-protein metabolism, not elsewhere classified; M79.651 Pain in right thigh; G89.29 Other chronic pain; E87.70 Fluid overload, unspecified; M10.9 Gout, unspecified; E86.9 Volume depletion, unspecified; R94.5 Abnormal results of liver function studies; F10.21 Alcohol dependence, in remission; K75.81 Nonalcoholic steatohepatitis (NASH); M19.90 Unspecified osteoarthritis, unspecified site; I12.9 Hypertensive chronic kidney disease with stage 1 through stage 4 chronic kidney disease, or unspecified chronic kidney disease; E78.00 Pure hypercholesterolemia, unspecified; B96.20 Unspecified Escherichia coli [E. coli] as the cause of diseases classified elsewhere; Z96.611 Presence of right artificial shoulder joint; Z23 Encounter for immunization; Z79.899 Other long term (current) drug therapy; Z79.02 Long term (current) use of antithrombotics/antiplatelets; Z87.19 Personal history of other diseases of the digestive system; Z98.890 Other specified postprocedural states
CPT/HCPCS: 31500; 36415; 36430; 36556; 36569; 36600; 51798; 71045; 76770; 80048; 80053; 80069; 80074; 81001; 82140; 82248; 82330; 82374; 82533; 82550; 82803; 82947; 83690; 83735; 83930; 84100; 84132; 84295; 84443; 84550; 85014; 85018; 85025; 85610; 85730; 86317; 86850; 86900; 86901; 86923; 87040; 87070; 87077; 87186; 87205; 90686; 93005; 93010; 94002; 94003; 94644; 94660; 94664; 94761; 96374; 96375; 99285-25; A9270; C1751; C1752; C9113; G0008; G0103; J0610; J0696; J1644; J1720; J1815; J1940; J1956; J2354; J2370; J2704; J3475; J7030; J7040; J7042; J7050; J7060; J7070; J7120; J7799; P9016; P9046; P9059